=== PATIENT | female | born 1955 | race Caucasian/White ===

== ENCOUNTER 2017-04-10 12:02 | Emergency (ER) | payer OTHER ==
[~2017-04-10] VITALS: Ht 162.6 cm; Wt 68.0 kg
[~2017-04-10 12:02] MED LIST: PERCOCET 325 MG1 TA2 PO
--- NOTE | 2017-04-10 12:38 | ED DYSPNEA/ASTHMA COMPLAINT ---
History of Present Illness General Chief Complaint: Wheezing/Asthma Stated Complaint: ASTHMA Source: patient Exam Limitations: no limitations Vital Signs & Intake/Output Vital Signs & Intake/Output Vital Signs Date Time Temp Pulse Resp B/P B/P Pulse O2 O2 Flow FiO2 Mean Ox Delivery Rate 04/10 1334 96.9 84 18 124/63 100 Room Air 04/10 1252 97 Room Air 04/10 1248 97 04/10 1219 96.8 86 24 137/96 95 Room Air ED Intake and Output 04/11 0000 04/10 1200 Intake Total 0 Output Total Balance 0 Intake, Oral 0 Patient 150 lb Weight Weight Reported by Patient Measurement Method Allergies Coded Allergies: NO KNOWN ALLERGIES (01/31/11) Reconcile Medications Albuterol Sulfate (Proair Hfa) 90 MCG HFA.AER.AD 2 PUF INH Q4-6 PRN PRN DYSPNEA OXYCODONE HCL/ACETAMINOPHEN (Percocet 5-325 MG Tablet) 325 MG/5 MG TAB 1-2 TAB PO Q4-6 PRN PRN PAIN Prednisone 20 MG TABLET 2 TAB PO D ASTHMA Triage Note: C/O SOB X 1 WEEK WITH DRY COUGH. STATE SHE RAN OUT OF HER RESCUE INHALER. Triage Nurses Notes Reviewed? yes Onset: Gradual Duration: day(s): (5) Timing: recent history Severity: mild Associated Symptoms: cough, weakness HPI: 61 year old female presents to the ER with sob, wheezing. She rain out of her inhaler 4 days ago. Her states that her breathing was not good last night. She is a former smoker. She denies chest pain, productive cough, fever or chills. Past History Travel History Traveled to [place] past 21 day No Medical History Any Pertinent Medical History? see below for history Neurological: NONE EENT: NONE Cardiovascular: NONE Respiratory: asthma Gastrointestinal: colitis Hepatic: NONE Renal: NONE Musculoskeletal: NONE Psychiatric: anxiety Endocrine: NONE Blood Disorders: NONE Cancer(s): NONE ADOPTION SOCIAL WORKER/Reproductive: NONE Surgical History Surgical History: non-contributory Psychosocial History What is your primary language Botswanan Tobacco Use: Never used ETOH Use: occasional use Family History Hx Contributory? No Review of Systems Review of Systems Constitutional: Denies: chills, fever. EENTM: Reports: no symptoms. Respiratory: Reports: cough, short of breath. Denies: sputum production. Cardiovascular: Denies: chest pain. GI: Denies: abdominal pain, nausea, vomiting. Genitourinary: Denies: discharge, dysuria, frequency, hematuria. Musculoskeletal: Reports: no symptoms. Skin: Reports: no symptoms. Neurological/Psychological: Reports: no symptoms. Hematologic/Endocrine: Denies: bruising, bleeding, polyuria, polydipsia. Immunologic/Allergic: Denies: splenectomy. All Other Systems: Reviewed and Negative Physical Exam Physical Exam General Appearance: well developed/nourished, alert, awake Head: atraumatic, normal appearance Eyes: Bilateral: normal appearance, PERRL, EOMI. Ears, Nose, Throat: normal pharynx, normal ENT inspection, hearing grossly normal Neck: normal inspection, supple, full range of motion Respiratory: accessory muscle use, wheezing Cardiovascular: regular rate/rhythm Peripheral Pulses: 2+ radial (R), 2+ radial (L) Gastrointestinal: normal bowel sounds, soft, non-tender Extremities: normal inspection, normal capillary refill, normal range of motion, no edema Neurologic/Psych: no motor/sensory deficits, awake, alert, oriented x 3 Skin: intact, normal color, warm/dry Core Measures ACS in differential dx? No Severe Sepsis Present: No Septic Shock Present: No Progress Differential Diagnosis: asthma, bronchitis, COPD, pneumonia Plan of Care: Orders Procedure Date/time Status RT ED ORDERS 04/10 1237 Active NO WHEEZING AFTER DUONEB. PATIENT FEELING MUCH BETTER. (ROCAEL VALENTINE,CESAR) Initial ED EKG: none Departure Departure Time of Disposition: 1325 Disposition: HOME OR SELF CARE Condition: Stable Clinical Impression Primary Impression: Asthma exacerbation Referrals: JARAD TRIANA DO (PCP/Family) Additional Instructions: USE THE INHALER AND PREDNISONE DIRECTED. YOUR PRESCRIPTION IS AT [facility] IN [place]. FOLLOW UP WITH YOUR DOCTOR IN THE OFFICE. RETURN NEEDED. Departure Forms: Customer Survey General Discharge Information Prescriptions: Current Visit Scripts Albuterol Sulfate (Proair Hfa) 2 PUF INH Q4-6 PRN PRN DYSPNEA #1 INHAL Prednisone 2 TAB PO D #6 TAB Critical Care Note Critical Care Note Critical Care Time: non-applicable
[2017-04-10] MEDS ORDERED: PREDNISONE20 M1 PO (13:26)
[2017-04-10] MEDS ORDERED: PROAIR HFA8.5 GM INH (13:26)
[2017-04-10 13:34] VITALS: BP 124/63
== END 2017-04-10 13:35 ==
LOC: ERH 12:02
DX: J45.901 Unspecified asthma with (acute) exacerbation (principal)
CPT/HCPCS: 1263

== ENCOUNTER 2018-04-23 20:19 | Inpatient (IN) | payer OTHER ==
[~2018-04-23] VITALS: Ht 162.6 cm; Wt 45.4 kg
[~2018-04-23 20:19] MED LIST changes: +ADVAIR 100-501 EACH INH; +ALPRAZOLAM1 M2 PO; +APRISO0.375 G1 PO; +MULTIVITAMINS1 EAC9 PO; +PREDNISONE10 M2 PO; +PREDNISONE20 M1 PO; +PROAIR HFA8.5 GM INH
[2018-04-23 21:37] LABS: ABSOLUTE BASOPHIL COUNT 0.2 /CUMM (0.0-0.2); ABSOLUTE EOSINOPHIL COUNT 0.2 /CUMM (0.0-0.7); ABSOLUTE GRANULOCYTE CT 16.9 /CUMM (1.4-6.5); ABSOLUTE LYMPH COUNT 2.8 /CUMM (1.2-3.4); ABSOLUTE MONOCYTE COUNT 1.4 /CUMM (0.10-0.60); BASOPHIL % 0.8 % (0.0-2.0); EOSINOPHIL % 1.1 % (0-5); GRANULOCYTE % 78.3 % (42.2-75.2); HEMATOCRIT 47.1 % (37-47); MEAN CORPUSCULAR HGB 30.8 PG (27.0-31.0); MEAN CORPUSCULAR HGB CONC 34.4 G/DL (33.0-37.0); MEAN CORPUSCULAR VOLUME 89.6 FL (81.0-99.0); MEAN PLATELET VOLUME 8.4 FL (7.4-10.4); PLATELET COUNT 594 /CUMM (130-400); RBC DISTRIBUTION WIDTH 13.2 % (11.5-14.5); RED BLOOD CELL CT 5.26 /CUMM (4.20-5.40)
[2018-04-23 21:44] LABS: PT 13.6 SEC (9.4-12.5); PTT 31 SEC (25-37)
[2018-04-23 21:52] LABS: WHITE BLOOD CELL COUNT 21.6 /CUMM (4.8-10.8)
--- NOTE | 2018-04-23 22:18 | ED GI/GU/ABDOMINAL COMPLAINT ---
See Addendum History of Present Illness General Chief Complaint: General Adult Stated Complaint: PT NAUSEA AND BLEEDING Source: patient Exam Limitations: no limitations Vital Signs & Intake/Output Vital Signs & Intake/Output Vital Signs Date Time Temp Pulse Resp B/P B/P Pulse O2 O2 Flow FiO2 Mean Ox Delivery Rate 04/23 2127 Room Air 04/23 2024 98.5 87 18 116/82 96 Room Air Allergies Coded Allergies: NO KNOWN ALLERGIES (01/31/11) Reconcile Medications Albuterol Sulfate (Proair Hfa) 90 MCG HFA.AER.AD 2 PUF INH Q4-6 PRN PRN DYSPNEA Alprazolam 1 MG TABLET 1 TAB PO TID PRN ANXIETY (Reported) Fluticasone-Salmeterol (Advair 100-50 Diskus) 100 MCG-50 MCG/DOSE BLST.W.DEV 1 PUF INH BID ASTHMA (Reported) Mesalamine (Apriso) 0.375 GRAM CAP.ER.24H 4 CAP PO DAILY UC (Reported) Multiple Vitamin (Multivitamins) 1 EACH TABLET 1 TAB PO DAILY SUPPLEMENT ( Reported) Prednisone 10 MG TABLET 1 TAB PO DAILY colitis 6 tabs po daily x 7 days then 5 tabs po daily x 7 days then 4 tabs po daily x 7 days then 3 tabs po daily x 7 days then 2 tabs po daily x 7 days then follow up with MD Triage Note: PT FROM HOME C/O UC FLARE UP X1 DAY. PT STATES NAUSEA WITH DIARRHEA X MULTIPLE EPISODES. PT STATES BLOODY DIARRHEA SINCE THE FLARE UP. VSS. Triage Nurses Notes Reviewed? yes LMP (ages 10-50): post menopausal, unknown ? N Is pt currently ? No Onset: Gradual Duration: week(s): (2), constant, continues in ED, getting worse Timing: recent history Quality/Severity: cramping Severity Numbers: 8 Location: generalized abdomen Radiation: no radiation Activities at Onset: none Prior Abdominal Problems: similar symptoms (UC) Past Sexual History: Unobtainable at this time No Modifying Factors: none Associated Symptoms: abdominal pain, diarrhea, nausea/vomiting HPI: 62-year-old female history of asthma, ulcerative colitis presents for reevaluation of abdominal pain and bloody diarrhea and nausea and vomiting. Patient was seen in the emergency room 6 days ago similar symptoms. She was given a dose of IV steroids and started on a prednisone taper 60 mg and then down by 10 every week. She's been taking the prednisone as directed but feels like she is not getting any better. She is having multiple episodes of nausea and vomiting and is not tolerating prednisone. She also reports multiple episodes of bloody diarrhea. No chest pain shortness of breath fever or melena no blood thinners. She is followed by Dr. Gordon. She is not taking any biologic's. The only other medication for her UC as mesalamine. (Tobias Rider) Past History Travel History Traveled to [place] past 21 day No Medical History Any Pertinent Medical History? see below for history Neurological: NONE EENT: NONE Cardiovascular: NONE Respiratory: asthma Gastrointestinal: colitis Hepatic: NONE Renal: NONE Musculoskeletal: NONE Psychiatric: anxiety Endocrine: NONE Blood Disorders: NONE Cancer(s): NONE EEG TECH/Reproductive: NONE Surgical History Surgical History: non-contributory Psychosocial History What is your primary language Armenian Tobacco Use: Quit >30 days ago Family History Hx Contributory? No (Tobias Rider) Review of Systems Review of Systems Constitutional: Reports: no symptoms. EENTM: Reports: no symptoms. Respiratory: Reports: no symptoms. Cardiovascular: Reports: no symptoms. GI: Reports: see HPI, abdominal pain, diarrhea, nausea, bloody stool. Genitourinary: Reports: no symptoms. Musculoskeletal: Reports: no symptoms. Skin: Reports: no symptoms. Neurological/Psychological: Reports: no symptoms. Hematologic/Endocrine: Reports: no symptoms. Immunologic/Allergic: Reports: no symptoms. All Other Systems: Reviewed and Negative (Tobias Rider) Physical Exam Physical Exam General Appearance: well developed/nourished, no apparent distress, alert, awake Head: atraumatic, normal appearance Eyes: Bilateral: normal appearance, PERRL, EOMI. Ears, Nose, Throat, Mouth: hearing grossly normal, DRY MUCOUS MEMBRANES Neck: normal inspection, supple, full range of motion Respiratory: normal breath sounds, chest non-tender, no respiratory distress, lungs clear Cardiovascular: regular rate/rhythm, normal peripheral pulses Peripheral Pulses: 2+ radial (R), 2+ radial (L) Gastrointestinal: normal bowel sounds, soft, no organomegaly, tenderness ( DIFFUSE) Back: normal inspection, normal range of motion, no vertebral tenderness Extremities: normal range of motion Neurologic/Psych: no motor/sensory deficits, awake, alert, oriented x 3, normal gait, normal mood/affect Skin: intact, normal color, warm/dry Core Measures ACS in differential dx? No Sepsis Present: No Sepsis Focused Exam Completed? No (Dudley ALONSO,Tobias) Progress Differential Diagnosis: appendicitis, bowel obstruction, colon cancer, diverticulitis, gastritis, hernia, hemorrhoids, ischemic bowel, inflamm bowel dis, kidney stone, perforated viscous, SBO, threatened AB, UTI/pyelo Plan of Care: Orders Procedure Date/time Status Nothing by Mouth 04/24 B Active ED Holding Orders 04/23 2304 Active Admit to inpatient 04/23 2304 Active Vital Signs 04/23 2304 Active Code Status 04/23 2304 Active Patient Data 04/[address] ABD & PELVIS W IV CONTRAST 04/23 2203 Active Add-on Test (ER Only) 04/23 2125 Active URINALYSIS 04/23 2050 Active TROPONIN LEVEL 04/23 2050 Complete PARTIAL THROMBOPLASTIN TIME 04/23 2050 Complete PROTHROMBIN TIME 04/23 2050 Complete LIPASE 04/23 2050 Complete COMPREHENSIVE METABOLIC PANEL 04/23 2050 Complete CBC WITHOUT DIFFERENTIAL 04/23 2050 Complete Current Medications Sig/Kristine Start time Last Medication Dose Stop Time Status Admin Methylprednisolone 40 MG Q12 04/23 2216 UNVr 04/23 (Solumedrol) 225 Laboratory Tests 04/23/182121: Anion Gap 9, Estimated GFR > 60, BUN/Creatinine Ratio 15.6, Glucose 144 H, Calcium 8.4, Total Bilirubin 1.4 H, AST 30, ALT 105 H, Alkaline Phosphatase 191 H, Troponin I < 0.01, Total Protein 5.8 L, Albumin 2.7 L, Globulin 3.1, Albumin/Globulin Ratio 0.9 L, Lipase 155, CBC w Diff NO MAN DIFF REQ, RBC 5.26, MCV 89.6, MCH 30.8, MCHC 34.4, RDW 13.2, MPV 8.4, Gran % 78.3 H, Lymphocytes % 13.1 L, Monocytes % 6.7, Eosinophils % 1.1, Basophils % 0.8, Absolute Granulocytes 16.9 H, Absolute Lymphocytes 2.8, Absolute Monocytes 1.4 H, Absolute Eosinophils 0.2, Absolute Basophils 0.2 04/23/182111: PT 13.6 H, INR 1.24 H, APTT 31 Patient is here for reevaluation of ulcerative colitis. She was seen 6 days ago and started on a prednisone taper but now is feeling worse and is unable to tolerate fluids or the prednisone. She is actively retching on initial evaluation. Her vital signs are stable. Labs repeated and showed a white count of 20,000 that is decreased from 29,000. Her hemoglobin is elevated she is not a smoker she is probably dehydrated. She is not taking any biologic she's failed outpatient treatment with prednisone. Spoke with Dr. Luu who recommends the patient be admitted for IV antibiotics. Patient was started on Solu-Medrol 40 mg twice a day. She is also given Zofran without much improvement and was started on Phenergan. A CT scan of the abdomen and pelvis will be obtained. Patient be admitted to general medicine for further evaluation and treatment she'll require GI consult IV steroids IV fluids serial labs monitoring of vital signs IV antiemetics. Case discussed with Dr. Lombardi he agrees. Initial ED EKG: none (Tobias Rider) Departure Departure Disposition: STILL A PATIENT Condition: Stable Clinical Impression Primary Impression: Ulcerative colitis Qualifiers: Ulcerative colitis location: unspecified ulcerative colitis location Digestive disease complication type: with rectal bleeding Qualified Code: K51.911 - Ulcerative colitis, unspecified with rectal bleeding Referrals: Nikunj Auguste DO (PCP/Family) Departure Forms: Customer Survey General Discharge Information Admission Note Spoke With: Andrey Gamez MD Documentation of Exam: Documentation of any treatments & extenuating circumstances including Concerns Regarding Discharge (functional status, medication knowledge or non-compliance, living conditions, etc.) that warrant an admission rather than observation: [ Patient has failed outpatient treatment with oral steroids. She'll require IV steroids serial labs GI consult colonoscopy IV fluids IV antiemetics] (Tobias Rider) PA/MACHINE BINDING FOLDER Co-Sign Statement Statement: ED Attending supervision documentation- [X] I saw and evaluated the patient. I have also reviewed all the pertinent lab results and diagnostic results. I agree with the findings and the plan of care as documented in the PA's/MACHINE BINDING FOLDER's documentation. [] I have reviewed the ED Record and agree with the PA's/MACHINE BINDING FOLDER's documentation. [] Additions or exceptions (if any) to the PAs/MACHINE BINDING FOLDER's note and plan are summarized below: [] 62-year-old email with ongoing abdominal pain and vomiting. Exacerbation of Crohn's disease. Failing outpatient therapy. (Roscoe PEREZ,Zander Hernández.)
--- NOTE | 2018-04-23 23:13 | History & Physical ---
Adolph Franz 04/23/18 3832: General Information and HPI MD Statement: I have seen and personally examined TIMMY RAMIREZ and documented this H&P. The patient is a 62 year old F who presented with a patient stated chief complaint of [vomiting x2days, crampy abdominal pain x1 month, bloody stools x2 days]. Source of Information: patient, family, old records Exam Limitations: no limitations History of Present Illness: 62-year-old female history of asthma, ulcerative colitis presents for reevaluation of abdominal pain and bloody diarrhea and nausea and vomiting. Patient was seen in the emergency room 6 days ago similar symptoms. She was given a dose of IV steroids and started on a prednisone taper 60 mg and then down by 10 every week. She's been taking the prednisone as directed but feels like she is not getting any better. She is having multiple episodes of nausea and vomiting and is not tolerating prednisone. She also reports multiple episodes of bloody diarrhea. No chest pain shortness of breath fever or melena no blood thinners. She is followed by Dr. Gordon. She is not taking any biologic's. The only other medication for her UC is mesalamine. Patient states that stress normally exacerbates her Ulcerative Colitis. States that mother recently and will was not executed so there has been lots of fighting in the family. States that her last flare was in 2012. States that her symptoms started approximately 1 month ago, and she saw Dr. Gordon outpatient three weeks ago who prescribed a steroid taper and gave her samples of Aprizo which she took. States she got better for roughly a week and then continued with crampy abdominal pain which eventually made her go to the ED on 04/17, where CT A/ P showed colitis, and she was given IV steroids and started on PO prednisone taper. She states that she again began having cramping Wednesday, as well as nausea and decreased PO appetite 2/2 the nausea. Started having bloody "pink" stools with blood on toilet paper although none in the bowl on . Began vomiting clear liquids Wednesday, and symptoms worsened prompting her to come into ED Wednesday. Past History Travel History Traveled to [place] past 21 day No Medical History Neurological: NONE EENT: NONE Cardiovascular: NONE Respiratory: asthma Gastrointestinal: colitis Hepatic: NONE Renal: NONE Musculoskeletal: NONE Psychiatric: anxiety Endocrine: NONE Blood Disorders: NONE Cancer(s): NONE REGISTRAR COLLEGE OR UNIVERSITY/Reproductive: NONE Surgical History Surgical History: non-contributory Past Family/Social History Psychosocial History Smoking Status: Former Smoker (quit at 24years of age) ETOH Use: occasional use (wine) Illicit Drug Use: denies illicit drug use Functional Ability ADLs Independent: dressing, eating, toileting, bathing. Ambulation: independent IADLs Independent: shopping, housework, finances, food prep, telephone, transportation , medication admin. Sexual History Past Sexual History Unobtainable at this time Review of Systems Review of Systems Constitutional: Reports: see HPI, malaise. Denies: chills, diaphoresis, fever, weakness. Cardiovascular: Denies: chest pain, edema, orthopena, palpitations. Respiratory: Denies: cough, hemoptysis. GI: Reports: abdominal pain, bloating, diarrhea, bloody stool, changes in stool. Exam & Diagnostic Data Last 24 Hrs of Vital Signs/I&O Vital Signs Date Time Temp Pulse Resp B/P B/P Pulse O2 O2 Flow FiO2 Mean Ox Delivery Rate 04/24 0054 97.7 76 18 100/64 95 Room Air 04/23 2312 98.2 100 18 137/76 94 Room Air 04/23 2127 Room Air 04/23 2024 98.5 87 18 116/82 96 Room Air Intake & Output 04/24 0800 04/24 0000 04/23 1600 Intake Total 1000 Output Total Balance 1000 Intake, IV 1000 Patient 150 lb Weight Weight Reported by Patient Measurement Method Physical Exam General Appearance Alert, Oriented X3, Cooperative, Mild Distress Skin No Rashes Skin Temp/Moisture Exam: Warm/Dry Cardiovascular Regular Rate, Normal S1, Normal S2 Lungs Clear to Auscultation, Normal Air Movement Abdomen Soft, No Tenderness, localizes crampy abdominal tenderness in band-like distribution around umbilicus Neurological Normal Speech, Strength at 5/5 X4 Ext Extremities No Edema, Normal Pulses Last 24 Hrs of Labs/Artem: Laboratory Tests 04/23/18 2307: Urine Color YEL, Urine Clarity CLEAR, Urine pH 6.5, Ur Specific [place] <= 1.005 , Urine Protein NEG, Urine Ketones NEG, Urine Nitrite NEG, Urine Bilirubin NEG, Urine Urobilinogen 0.2, Ur Leukocyte Esterase SMALL H, Ur Microscopic SEDIMENT EXAMINED, Urine RBC 1-3, Urine WBC 3-5 H, Ur Epithelial Cells FEW, Urine Bacteria RARE H, Urine Hemoglobin NEG, Urine Glucose NEG 04/23/182121: Anion Gap 9, Estimated GFR > 60, BUN/Creatinine Ratio 15.6, Glucose 144 H, Calcium 8.4, Total Bilirubin 1.4 H, AST 30, ALT 105 H, Alkaline Phosphatase 191 H, Troponin I < 0.01, Total Protein 5.8 L, Albumin 2.7 L, Globulin 3.1, Albumin/Globulin Ratio 0.9 L, Lipase 155, CBC w Diff NO MAN DIFF REQ, RBC 5.26, MCV 89.6, MCH 30.8, MCHC 34.4, RDW 13.2, MPV 8.4, Gran % 78.3 H, Lymphocytes % 13.1 L, Monocytes % 6.7, Eosinophils % 1.1, Basophils % 0.8, Absolute Granulocytes 16.9 H, Absolute Lymphocytes 2.8, Absolute Monocytes 1.4 H, Absolute Eosinophils 0.2, Absolute Basophils 0.2 04/23/182111: PT 13.6 H, INR 1.24 H, APTT 31 Microbiology 04/24 6 STOOL: Ova and Parasite Macroscopic Exam - ORD 04/24 6 STOOL: Clostridium difficile Toxin A & B - ORD 04/24 6 STOOL: Yersinia Culture - ORD 04/24 6 STOOL: Stool Culture - ORD Assessment/Plan Assessment: 62-year-old female history of asthma, ulcerative colitis presents for reevaluation of abdominal pain and bloody diarrhea and nausea and vomiting. She was last seen in ED on April 17, and did not completer her outpatient steroid taper 2/2 nausea and vomiting. She does have leukocytosis on labs, however this is in the setting of steroid use and has been afebrile. She will be admitted for an acute flare of ulcerative colitis. Differentials include Ulcerative Colitis, doubt infectious colitis, gastroenteritis, gastritis. Likely an acute flare as patients past flares have presented similarly in the setting of an acute stressor; likely not infectious as no sick contacts nor fevers; while she does have diarrhea it is bloody leading more likely towards UC. Problem List #Acute Flare of Ulcerative Colitis #Intractable Nausea #Hyponatremia likely 2/2 diarrhea #Bloody stools #Elevated ALT #Ulcerative Colitis Flare -NPO overnight in case of intervention in AM -Recieved Solumedrol in ED, will continue with 40mg IV q12 -Gastro consult in AM; Pt follows Dr Gordon outpatient; will follow recs -IVF -Phenergen and Tigan as needed to control nausea -Stool cultures were sent #Nausea -As above -IVF #Bloody Stools -Hemoglobin stable -Will follow up CBC in AM #ALT elevation -CT A/P on 04/17 shows biliary sludge DVT PPx: ALPS only, no heparin 2/2 bloody stool IV access NPO DNR/DNI Dispo: Likely home As Ranked By This Provider Problem List: 1. Ulcerative colitis Qualifiers Ulcerative colitis location: unspecified ulcerative colitis location Digestive disease complication type: with rectal bleeding Qualified Code: K51.911 - Ulcerative colitis, unspecified with rectal bleeding Core Measures/Misc (05/30) Acute Coronary Syndrome ACS Diagnosis: No Congestive Heart Failure Congestive Heart Failure Diagnosis No Cerebrovascular Accident CVA/TIA Diagnosis: No VTE (View Protocol) VTE Risk Factors Age>40 No Mechanical VTE Prophylaxis d/t N/A MechProphylax Ordered No VTE Pharm Prophylaxis d/t Medical Contraindication (bloody stools) Sepsis (View protocol) Sepsis Present: No If YES complete Sepsis Event Note If YES complete Sepsis Event Note ManavPippa Sheldon 04/23/18 2321: Core Measures/Misc (05/30) Sepsis (View protocol) If YES complete Sepsis Event Note If YES complete Sepsis Event Note Resident Review Statement Resident Statement: examined this patient, discussed with agriculture internship, agreed with agriculture internship, discussed with family, reviewed EMR data (avail), discussed with nursing , discussed with case mgmt, reviewed images, amended to note Other Findings: Ms. Ramirez is 62yo F w/ PMH of long standing UC w/ intermittent flares in the past without hospitalization, asthma, anxiety, presented to ER CC of UC leander up x 1 day w/ Nausea, limited bilious vomiting, multiple episodes of bloody diarrhea. Patient was seen by Dr. Gordon last in 2012 for colonoscopy. She presented to ER 6 days ago before this admission and was discharged on Asocol and prednisone taper after ER consulted GI on-call. She felt improved intermittently howevef again on Thusrday night she started to have N/V/D again which she could not take her meds down PO. Patient was previously given some samples from GI for UC, improved, however her insurance could not support the meds. Rest of HPI per agriculture internship's note. During our clinical interaction, patient denied recent travel/sick contacts, fever/lightheadedness/diaphoresis/night sweat/weight change/cough/SOB/Chest Pain /Palpitation/CVA tenderness/urinary abnormality, or other skin/musculoskeletal/ neurological/mood disorders, or dietary/appetite change. -Smoking: denied -Alcohol: denied -Drugs: denied -Outpt physicians: GI, PCP On admission, Vitals: stable afebrile, BP 116/82, 96 RA Physical exam as above. Pertinent findings include some mild crampy tenderness on lower left Ab/[place]-umbilicous area. Otherwise unremarkable. -CBC: Leukocytosis 21.5, H/H 16.2/47.1, PLT 594 -CMP: Na 134, otherwise WNL, ALT 105, ALkP 191, Trop -ve x 1, albumin 2.7, -PT/INR/DDimer: 13.6/1.24 -CT Abd: Similar appearance of active ulcerative colitis with pancolonic inflammation and wall thickening. No evidence of perforation. No fluid collection. Cholelithiasis. -Last Echo: None in our system -Interventions in ER: Solumedrol 40 q12, Phenergen, NS Bolus x 1, ZOfran IV x 1 Problem list/Assessment/Hospital Course: #Ulcerative colitis vs infection/ischemic pending rule out #Leukocytosis 2/2 UC/Colitis #Dehydration w/ hemeconcentration #Elevated ALT/ALP, likely reactive to slurge (see CT Ab report) #PMH of UC, asthma, anxiety - Admit to general medicine - Vitals per protocol, monitor I&O per protocol. - COntinuous hydration w/ NS 125cc/hr - Keep off ABX for now as patient's clinical status more likely represent UC colitis without any fever, though leukocytosis could also be from infective colitis. - Continue all home meds, except HOLDING Mesalamine/prednisone (on methylsolumedrol now) pending GI recommendations. - Pending GI Consult in the AM - Pending cultures including stool cultures/OVA, etc. - Pain per pathway DVT prophylaxis ALPS only w/ bloody diarrhea NPO IV Access: Peripheral IV DNR/DNI Dispo: likely [facility] Andrey Gamez MD 04/24/18 9443: General Information and HPI MD Statement: I have seen and personally examined TIMMY RAMIREZ and documented this H&P. The patient is a 62 year old F who presented with a patient stated chief complaint of [nausea, vomiting and bloody diarrhea]. Source of Information: patient Allergies/Medications Allergies: Coded Allergies: NO KNOWN ALLERGIES (01/31/11) Home Med list Albuterol Sulfate (Proair Hfa) 90 MCG HFA.AER.AD 2 PUF INH Q4-6 PRN PRN DYSPNEA Alprazolam 1 MG TABLET 1 TAB PO TID PRN ANXIETY (Reported) Fluticasone-Salmeterol (Advair 100-50 Diskus) 100 MCG-50 MCG/DOSE BLST.W.DEV 1 PUF INH BID ASTHMA (Reported) Mesalamine (Apriso) 0.375 GRAM CAP.ER.24H 4 CAP PO DAILY UC (Reported) Multiple Vitamin (Multivitamins) 1 EACH TABLET 1 TAB PO DAILY SUPPLEMENT ( Reported) Prednisone 10 MG TABLET 1 TAB PO DAILY colitis 6 tabs po daily x 7 days then 5 tabs po daily x 7 days then 4 tabs po daily x 7 days then 3 tabs po daily x 7 days then 2 tabs po daily x 7 days then follow up with MD Past History Medical History Respiratory: asthma Gastrointestinal: ulcerative colitis Psychiatric: anxiety Review of Systems Review of Systems Constitutional: Reports: see HPI. Exam & Diagnostic Data Last 24 Hrs of Vital Signs/I&O Vital Signs Date Time Temp Pulse Resp B/P B/P Pulse O2 O2 Flow FiO2 Mean Ox Delivery Rate 04/24 0300 99.8 91 18 100/64 94 Room Air 04/24 0054 97.7 76 18 100/64 95 Room Air 04/23 2312 98.2 100 18 137/76 94 Room Air 04/23 2127 Room Air 04/23 2024 98.5 87 18 116/82 96 Room Air Intake & Output 04/24 0800 04/24 0000 04/23 1600 Intake Total 1000 Output Total Balance 1000 Intake, IV 1000 Patient 147 lb 150 lb Weight Weight Bed scale Reported by Patient Measurement Method Physical Exam General Appearance Alert, Oriented X3, Cooperative, No Acute Distress Skin No Rashes, No Breakdown, No Significant Lesion Skin Temp/Moisture Exam: Warm/Dry Sepsis Skin Exam (color): Normal for Ethnicity HEENT Atraumatic, PERRLA, EOMI Neck Supple, No JVD Lymphatic Axillary nl, Cervical nl Cardiovascular Regular Rate, Normal S1, Normal S2 Lungs Clear to Auscultation, Normal Air Movement Abdomen Normal Bowel Sounds, Soft, localizes crampy abdominal tenderness in band -like distribution around umbilicus Neurological Normal Speech Extremities No Edema, Normal Pulses Sepsis Peripheral Pulse Location: Dorsalis Pedis Sepsis Peripheral Pulse Exam: Normal Sepsis Cap Refill Exam: <2 Sec Last 24 Hrs of Labs/Artem: Laboratory Tests 04/23/182306: Urine Color YEL, Urine Clarity CLEAR, Urine pH 6.5, Ur Specific [place] <= 1.005 , Urine Protein NEG, Urine Ketones NEG, Urine Nitrite NEG, Urine Bilirubin NEG, Urine Urobilinogen 0.2, Ur Leukocyte Esterase SMALL H, Ur Microscopic SEDIMENT EXAMINED, Urine RBC 1-3, Urine WBC 3-5 H, Ur Epithelial Cells FEW, Urine Bacteria RARE H, Urine Hemoglobin NEG, Urine Glucose NEG 04/23/182121: Anion Gap 9, Estimated GFR > 60, BUN/Creatinine Ratio 15.6, Glucose 144 H, Calcium 8.4, Total Bilirubin 1.4 H, AST 30, ALT 105 H, Alkaline Phosphatase 191 H, Troponin I < 0.01, Total Protein 5.8 L, Albumin 2.7 L, Globulin 3.1, Albumin/Globulin Ratio 0.9 L, Lipase 155, CBC w Diff NO MAN DIFF REQ, RBC 5.26, MCV 89.6, MCH 30.8, MCHC 34.4, RDW 13.2, MPV 8.4, Gran % 78.3 H, Lymphocytes % 13.1 L, Monocytes % 6.7, Eosinophils % 1.1, Basophils % 0.8, Absolute Granulocytes 16.9 H, Absolute Lymphocytes 2.8, Absolute Monocytes 1.4 H, Absolute Eosinophils 0.2, Absolute Basophils 0.2 04/23/182111: PT 13.6 H, INR 1.24 H, APTT 31 Microbiology 04/24 6 STOOL: Ova and Parasite Macroscopic Exam - ORD 04/24 6 STOOL: Clostridium difficile Toxin A & B - ORD 04/24 6 STOOL: Yersinia Culture - ORD 04/24 6 STOOL: Stool Culture - ORD Core Measures/Misc (05/30) Sepsis (View protocol) If YES complete Sepsis Event Note If YES complete Sepsis Event Note Attending MD Review Statement Attending Statement Attending MD Statement: examined this patient, discuss w/resident/PA/BUSINESS APPLICATIONS MANAGER, agreed w/resident/PA/BUSINESS APPLICATIONS MANAGER, discussed with family, reviewed EMR data (avail), amended to note Attending Assessment/Plan: This patient is a 62-year-old female with a significant past medical history for asthma and ulcerative colitis who presents for reevaluation of abdominal pain, bloody diarrhea, nausea and vomiting. She was seen in the emergency room 6 days ago with similar complaints, given a dose of IV steroids and started on a prednisone taper 60 mg and then down by 10mg every week. She's been taking the prednisone as directed but continues to have multiple episodes of nausea and vomiting now associated with the bloody diarrhea. She is followed by Dr. Gordon and her baseline therapy is mesalamine. Upon evaluation in the emergency department the patients vital signs were stable, leukocytosis 21.6 (on prednisone), INR 1.24, ALT 105, alkaline phosphatase [address] ABD/PELV - Similar appearance of active ulcerative colitis with pancolonic inflammation and wall thickening. No evidence of perforation. No fluid collection. The patient is admitted to [facility] for failed outpatient treatment of inflammatory bowel diseases (UC). Gentle hydration, rule out infectious diarrhea, IV steroids and GI consult. DNR/DNI
--- NOTE | 2018-04-23 23:21 | CT SCAN REPORT ---
EXAMINATION: CT ABDOMEN AND PELVIS WITH CONTRAST CLINICAL INFORMATION: Diffuse pain, vomiting. Bloody diarrhea. History of ulcerative colitis. COMPARISON: 04/17/2018 TECHNIQUE: Multidetector volumetric imaging was performed of the abdomen and pelvis following IV administration of 95 mL of Optiray 320 intravenous contrast. Sagittal and coronal reformatted images were obtained on the technologist's workstation. DLP: 302 mGy-cm FINDINGS: LUNG BASES: The visualized lung bases are unremarkable. LIVER, GALLBLADDER, AND BILIARY TREE: The liver is normal in size, shape, and attenuation. No focal hepatic lesion or biliary ductal dilatation is present. The gallbladder is somewhat distended. Small stones/sludge are seen layering in the gallbladder fundus. No gallbladder wall thickening or pericholecystic fluid. PANCREAS: Unremarkable. SPLEEN: Unremarkable. ADRENAL GLANDS: Unremarkable. KIDNEYS AND URETERS: The kidneys are normal in size, shape, and attenuation. No hydronephrosis, hydroureter, or calculi seen. No perinephric stranding. BLADDER: Unremarkable. GASTROINTESTINAL TRACT: Stomach is unremarkable. The small bowel is normal in caliber. There is no obstruction. There is pancolonic wall thickening with adjacent inflammation. This has a similar appearance to the prior CT. Chronic intramural fatty infiltration is also noted. No free air. No fluid collection. ABDOMINAL WALL: No significant hernia is appreciated. LYMPH NODES: Normal. VASCULAR: Unremarkable. PELVIC VISCERA: The uterus and adnexa are unremarkable. OSSEOUS STRUCTURES: No acute or suspicious osseous abnormality. Mild degenerative changes in the spine. IMPRESSION: Similar appearance of active ulcerative colitis with pancolonic inflammation and wall thickening. No evidence of perforation. No fluid collection. Cholelithiasis.
[2018-04-24 03:00] VITALS: BP 100/64
[2018-04-24 06:24] VITALS: BP 102/62
[2018-04-24 08:26] LABS: ABSOLUTE BASOPHIL COUNT 0 /CUMM (0.0-0.2); ABSOLUTE EOSINOPHIL COUNT 0 /CUMM (0.0-0.7); ABSOLUTE GRANULOCYTE CT 18.1 /CUMM (1.4-6.5); ABSOLUTE LYMPH COUNT 1.2 /CUMM (1.2-3.4); ABSOLUTE MONOCYTE COUNT 0.1 /CUMM (0.10-0.60); BASOPHIL % 0.1 % (0.0-2.0); EOSINOPHIL % 0.1 % (0-5); GRANULOCYTE % 93.3 % (42.2-75.2); MEAN CORPUSCULAR HGB 30.8 PG (27.0-31.0); MEAN CORPUSCULAR HGB CONC 33.8 G/DL (33.0-37.0); MEAN CORPUSCULAR VOLUME 91.1 FL (81.0-99.0); MEAN PLATELET VOLUME 8.1 FL (7.4-10.4); PLATELET COUNT 491 /CUMM (130-400); RBC DISTRIBUTION WIDTH 13.7 % (11.5-14.5); RED BLOOD CELL CT 4.55 /CUMM (4.20-5.40)
--- NOTE | 2018-04-24 08:58 | PN- Housestaff ---
Cristal Ramos 04/24/18 0858: Subjective Follow-up For: Ulcerative colitis flare up Subjective: Patient was seen and examined at bedside. She reports she had bloody diarrhea in the morning. She denies fever, chills, nausea, vomiting, chest pain, shortness of breath. Review of Systems Constitutional: Reports: see HPI. Objective Last 24 Hrs of Vital Signs/I&O Vital Signs Date Time Temp Pulse Resp B/P B/P Pulse O2 O2 Flow FiO2 Mean Ox Delivery Rate 04/24 1457 98.3 68 18 121/79 96 04/24 0800 97 Room Air 04/24 0624 98.3 69 20 102/62 93 / 0300 99.8 91 18 100/64 94 Room Air 04/24 0054 97.7 76 18 100/64 95 Room Air 04/23 2312 98.2 100 18 137/76 94 Room Air 04/23 2127 Room Air 04/23 2024 98.5 87 18 116/82 96 Room Air Intake & Output 04/24 1600 04/24 0800 04/24 0000 Intake Total 949 135 8646 Output Total 3 300 Balance 794 022 6629 Intake, IV 600 1000 Intake, Oral 120 Output, Stool 3 Output, Urine 300 Patient 100 lb 150 lb Weight Weight Bed scale Reported by Patient Measurement Method Physical Exam General Appearance: Alert, Oriented X3, Cooperative, No Acute Distress Neck: Supple Cardiovascular: Regular Rate, Normal S1, Normal S2 Lungs: Clear to Auscultation Abdomen: Normal Bowel Sounds, Soft, No Tenderness Assessment/Plan Assessment: 62-year-old female history of asthma, ulcerative colitis presents for reevaluation of abdominal pain and bloody diarrhea and nausea and vomiting. She was last seen in ED on April 17, and did not completer her outpatient steroid taper 2/2 nausea and vomiting. She does have leukocytosis on labs, however this is in the setting of steroid use and has been afebrile. She will be admitted for an acute flare of ulcerative colitis. Differentials include Ulcerative Colitis, doubt infectious colitis, gastroenteritis, gastritis. Likely an acute flare as patients past flares have presented similarly in the setting of an acute stressor; likely not infectious as no sick contacts nor fevers; while she does have diarrhea it is bloody leading more likely towards UC. Problem List 1.Acute Flare of Ulcerative Colitis 2.Intractable Nausea 3.Hyponatremia likely 2/2 diarrhea 4.Bloody stools 5.Elevated ALT 1.Ulcerative Colitis Flare -Recieved Solumedrol in ED, will continue with 40mg IV q12 -Gastro consult appreciated. Pt follows Dr Gordon outpatient; will follow recs -IVF -Phenergen and Tigan as needed to control nausea -Stool cultures were sent. Will f/u on reports 2.Nausea -As above -IVF 3.Bloody Stools -Hemoglobin stable -Will follow up CBC in AM 4.ALT elevation -CT A/P on 04/17 shows biliary sludge DVT PPx: ALPS only, no heparin 2/2 bloody stool IV access NPO DNR/DNI Dispo: Likely home Problem List: 1. Ulcerative colitis 2. Asthma exacerbation Pain Ratin Pain Location: na Pain Goal: Remain pain free Pain Plan: na Tomorrow's Labs & Rationales: cbc and bep Sylvester VALENTINE,Amir 04/24/18 1413: Attending MD Review Statement Attending Statement Attending MD Statement: examined this patient, discuss w/resident/PA/GLAZING SUPERINTENDENT, agreed w/resident/PA/GLAZING SUPERINTENDENT, reviewed EMR data (avail), discussed with nursing Attending Assessment/Plan: Pt was seen and evaluated. Chart reviewed. Being tx for active IBD --f/u GI recommendations --cont to monitor --rest of the plan as per resident's note
[2018-04-24 10:30] LABS: HEMATOCRIT 41.5 % (37-47)
[2018-04-24 10:31] LABS: WHITE BLOOD CELL COUNT 19.4 /CUMM (4.8-10.8)
[2018-04-24 14:57] VITALS: BP 121/79
--- NOTE | 2018-04-24 15:00 | Cons- Gastroenterology ---
See Addendum General Information and HPI Consulting Request Date of Consult: 04/24/18 Requested By: Andrey Gamez MD Reason for Consult: I was callled by the hospitalist service to assess ulcerative colitis, in coverage for Dr. Gordon. Source of Information: patient, family (pt's sister, Romy), old records Exam Limitations: mild anxiety History of Present Illness: 62 y/o female, remote hx 11/22/06: collagenous colitis via bxs, *later progressing to ulcerative colitis on repeat bxs (10/18/09 & 05/06/10), followed by Dr. Gordon for GI. (*The patient later stated her colitis was diagnosed at age 26, in 1981). The patient is a remote 6-pack-year cigarette smoker, stopping 1978. She also has a hx of EtOH abuse (wine- which she downplayed), anxiety, depression, DJD, & asthma. +FHx colon Ca (M- Britta Walter- late onset 84 in the setting of UC, 89). +FHx IBD (M- UC). She denied any additional FHx GI Ca, GI disease, or inherited liver disease. 07/18/13: Colonoscopy to cecum for UC surveillance, per Dr. Gordon-mildly active colitis from the rectum to the cecum, with erythema, friability, and a few superficial erosions. No raised lesions were seen. Small internal and external hemorrhoids. Numerous random 4 quadrant biopsies were obtained for surveillance purposes, revealing mild to severe chronic colitis with mild acute activity, in a continuous fashion, from the rectum to the cecum, more so proximally > distally, without dysplasia or Ca. She was most recently seen in the office by Dr. Gordon 04/14/18, previously seen by him 12/19/15. She previously was not compliant with office follow-up, nor with colonoscopy for continued CRC surveillance. She was found to have abnormal LFTs in 2015 and an ultrasound was advised then, but the patient was not compliant with this. She was drinking alcohol at that time. She was supposed to have been on Lialda, but it was too expensive, and she stopped it on her own in 02/2018, followed by worsening of her symptoms. She previously had achieved clinical remission on Mesalamine, but stopped it. When she saw Dr. Gordon , she was having 7 loose bowel movements a day, without any noticeable blood. She tried Imodium, with only partial relief. She had mild abdominal cramping, unrelated to eating. Her appetite was poor. She also noted intermittent heartburn and bilious vomiting, without any dysphagia or hematemesis. She denied any jaundice, abdominal swelling, or peripheral edema. When last seen by Dr. Gordon on 04/14/18, he restarted her mesalamine. He gave her a discount card for Apriso 1.5 g daily. As it had been 5 years from her last colonoscopy, he advised a repeat colonoscopy for surveillance purposes, which was tentatively scheduled for 05/24/18. He also advised checking her LFTs (possibly from a combination of ANGULO & EtOH, although her ratios were not typical for pure EtOH hepatitis). He also ordered an ultrasound. *Her LFTs have dated back several years, with + GGT. He felt that her reflux could be treated with Tums or H2 blockers, with the caveat that if it worsened, to rx PPI, with a low threshold to do an EGD. 05/01/09: Hep A Ab, Hep Bs Ag, Hep B core Ag, & Hep C Ab- all neg. 10/09/09: nl IgA 223, tTG Ab & DGP Ab- negative. 03/12/10: AMA < 0.1, anti-smooth muscle Ab- neg, ELVIN- neg. 01/31/11: EtOH < 10 04/13/18: *fecal calprotectin 1109.7 04/13/18: C. difficile toxin A&B- negative. 04/14/18: Dr. Gordon- glu 184, BUN/Cr 11/0.9, GFR > 60, Na 135, K 3.4, HCO3 20, AG 17, Ca 9.1, alb 3.7, glob 3.4, TBil 1.3, alk phos 141, AST 24, ALT 27, Fe 25, TIBC 264 (*c/w chronic disease), ferritin 248, B12 739, folate 17.4, Vit D 22.5, WBC 24.6 (63S/10B/18L/8M/1E), H/H 16.7/49.2, MCV 90.8, RDW 12.4, PLT 429 The patient went to the [facility] 04/17/18, arriving at 12:01 p.m., complaining of a flare of her ulcerative colitis, with bloody diarrhea. At that time, she was hemodynamically stable (BP 125/86), except for being borderline tachycardic (P 103), and afebrile, with O2 sat RA 98%. Her pulse normalized with IV fluids. Her temp peaked at 99.5. She was given IV NS, KCl, & IV Solucortef 100 mg. She had leukocytosis and appeared to be hemoconcentrated 04/17/18: WBC 29.9 (67S/5B/17L/11M; *reportedly not on steroids then), H/H 16.9/ 50.1, MCV 90.3, RDW 12.4, PLT 497, glu 148, BUN/Cr 11/0.9, GFR > 60, Na 133, K 3.3, HCO3 30, AG 12, lactate 1.7, lipase 93, Mg 2.3, Ca 8.7, alb 3.4, glob 3.4, TBil 1.3, alk phos 246, AST 45, ALT 55, *CRP > 9.0 (no ESR). 04/17/18: EKG- NSR @ 92, nl axis, nl int, NSST. 04/17/18: CT ABD & PELVIS W IV CONTRAST- 1. Findings are consistent with active ulcerative colitis. No bowel perforation, megacolon, or abscess. Elongated ascending colon, with cecum in left mid- abdomen. Patent celiac, SMA, MALENA. Normal aorta. 2. Cholelithiasis without cholecystitis, CBD 4 mm, normal liver, normal spleen & pancreas. 3. Mild DJD T-L spine. No sacroiliitis. *Apparently, the [facility] spoke with Dr. Evan galdamez, and the patient was sent home on Prednisone 60 mg daily, with plans for a follow-up OV on 04/28/18. The patient returned to the [facility] 04/23/18, arriving 8:19 p.m., with persistent flare symptoms of her ulcerative colitis, complaining of nausea without vomiting, & multiple episodes of bloody diarrhea, despite Prednisone 60 mg daily & Apriso 1.5g daily). Upon arrival, 116/82, P 87, R 18, T 98.5, O2 sat RA 96%. 04/23/18: 2121- Admission labs- WBC 21.6 (78% gran/17 gran Ab), H/H 16.2/47.1, MCV 89.6, RDW 13.2, PLT 594, PT 13.6, INR 1.24, PTT 31, glu 144, BUN/Cr 14/0.9, GFR > 60, Na 134, K 3.5, HCO3 28, AG 9, lipase 155, Ca 8.4, alb 2.7, glob 3.1, TBil 1.4, alk phos 191, AST 30, ALT 105, troponin < 0.01; U/A- clear yellow, < 1.005, 6.5, 1-3 RBC, 3-5 WBC, micro- otherwise neg, neg nitrite, small esterase. 04/23/18: CT ABD & PELVIS W IV CONTRAST- Similar appearance of active ulcerative colitis with pancolonic inflammation and wall thickening. No evidence of perforation. No fluid collection. Cholelithiasis. No dilated ducts or cholecystitis. Normal liver. She was given IV NS, Zofran, Phenergan, & SoluMedrol 40 mg IV Q12h. the ER contacted me, and I advised that the patient be admitted for IV therapy. She had never been on 6MP or biologic agents. *Again, compliance had been an issue in the past (along with EtOH, anxiety, etc). 04/24/18: C. difficile toxin A&B- negative. 04/24/18: 0637- WBC 19.4 (93% gran/18 gran Ab), H/H 14/41.5, MCV 91.1, RDW 13.7, PLT 491, BUN/Cr 11/0.6, GFR > 60, Na 137, K 3.3, HCO3 25, AG 8. The patient denied any recent outpatient antibiotics or NSAID use. She claimed her diarrhea was improving after being started on IV steroids. As of 04/24/18, the patient remained hemodynamically stable, with Tm 99.8 ( currently 98.3), with O2 sat RA 96%. The patient stated she had minimal diarrhea with only scant rectal bleeding. Her reflux was minimal. She denied any odynophagia, dysphagia, early satiety, hematemesis, or melena. Her nausea was fair, without any vomiting. She denied any jaundice, dark urine, light stools, or pruritus. She had known gallstones, but had no RUQ symptoms. She claimed she lost 12 pounds over the past couple of months. Her appetite was fair. She denied any rashes, fevers, chills, night sweats, CP, or SOB. She had chronic arthralgias in her right hand after sustaining trauma there, but otherwise denied any additional arthralgias. She denied any constipation, obstipation, tenesmus, or change in stool caliber. She denied any prior surgery. She denied any raw food or recent travel. Allergies/Medications Allergies: Coded Allergies: NO KNOWN ALLERGIES (01/31/11) Home Med List: Albuterol Sulfate (Proair Hfa) 90 MCG HFA.AER.AD 2 PUF INH Q4-6 PRN PRN DYSPNEA Alprazolam 1 MG TABLET 1 TAB PO TID PRN ANXIETY (Reported) Fluticasone-Salmeterol (Advair 100-50 Diskus) 100 MCG-50 MCG/DOSE BLST.W.DEV 1 PUF INH BID ASTHMA (Reported) Mesalamine (Apriso) 0.375 GRAM CAP.ER.24H 4 CAP PO DAILY UC (Reported) Multiple Vitamin (Multivitamins) 1 EACH TABLET 1 TAB PO DAILY SUPPLEMENT ( Reported) Prednisone 10 MG TABLET 1 TAB PO DAILY colitis 6 tabs po daily x 7 days then 5 tabs po daily x 7 days then 4 tabs po daily x 7 days then 3 tabs po daily x 7 days then 2 tabs po daily x 7 days then follow up with MD Current Medications: Current Medications Sig/Kristine Start time Last Medication Dose Route Stop Time Status Admin Acetaminophen 650 MG Q6P PRN 04/23 2345 AC PO Alprazolam 1 MG TIDPRN PRN 04/24 0015 DC PO 05/01 0014 Budesonide/ 1 PUF BID 04/24 0900 AC Formoterol Fumarate INH Melatonin 10 MG ONCE ONE 04/240 DC 04/24 PO 04/24 201 0352 Methylprednisolone 40 MG Q12 04/23 2216 AC 04/24 IV 08 Ondansetron HCl 0 .STK-MED ONE 04/23 2132 DC .ROUTE Ondansetron HCl 4 MG ONCE ONE 04/23 2130 DC 04/23 IV 04/23 Promethazine HCl 25 MG Q6P PRN 04/24 0030 AC IV 05/01 0029 Promethazine HCl 25 MG ONCE ONE 04/23 2215 DC 04/23 IV 04/23 Promethazine HCl 0 .STK-MED ONE 04/23 2209 DC .ROUTE Sodium Chloride 1,000 ML .Q6H40M 04/24 1400 AC 04/24 IV 04/25 0319 1421 Sodium Chloride 1,000 ML .Q6H40M 04/24 0000 DC 04/24 IV 04/24 1319 0611 Sodium Chloride 1,000 ML BOLUS ONE 04/23 2130 DC 04/23 IV 04/23 Past History Travel History Traveled to [place] past 21 day No Medical History Blood Transfusion Hx: No Neurological: NONE EENT: ALLERGIES (SEASONAL) Cardiovascular: NONE Respiratory: asthma Gastrointestinal: ulcerative colitis Hepatic: cholelithiasis (known), chronic int abnl LFTs Renal: NONE Musculoskeletal: ARTHRITIS TO R HAND Psychiatric: anxiety, depression Endocrine: vitamin D deficiency Blood Disorders: NONE Cancer(s): NONE MEDICAL ATTENDANT/Reproductive: NONE Surgical History Surgical History: none Family History Relations & Conditions If Any: MOTHER (late onset colon Ca at 84, in the setting of UC (Britta Walter).). , Age 92; Cause: Colon cancer. FATHER, , Age 56; Cause: Myocardial infarct. Psychosocial History Where Do You Live? Home Who Do You Live With? spouse Services at Home: None Primary Language: Beninese Smoking Status: Former Smoker (quit at 24years of age) ETOH Use: occasional use (wine- int heavy in past) Illicit Drug Use: denies illicit drug use Living Will? no Power of Field Test Engineer/HCP? no Other Social History: to He. 2 dtrs, 1 son, & 1 stepdtr- all [employer]. Hx intermittent abuse of wine (pt vague- claims she stopped). Ex-6 pk yr cigarette smoker, D/C 1978. No illicit drugs (on rx Xanax). 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 Ambulation: independent IADLs Independent: shopping, housework, finances, food prep, telephone, transportation , medication admin. Employment History Employment: Employed Profession/Employer: [employer] Review of Systems Review of Systems: Full 14 point ROS otherwise noncontributory & as above. Review of Systems Constitutional: Reports: unexplained weight loss (12 lbs past 2 mos). Denies: chills, diaphoresis, fever, malaise, weakness. EENTM: Denies: blurred vision, double vision, visual changes, eye pain, eye drainage, eye tearing, icterus, ear discharge, ear pain, ear redness, hearing changes, nasal congestion, epistaxis, nasal pain, throat pain, throat swelling, mouth pain, tooth pain. Cardiovascular: Denies: chest pain, edema, orthopena, palpitations, peripheral edema, syncope. Respiratory: Denies: cough, hemoptysis, orthopnea, short of breath, sputum production, stridor, wheezing. GI: Reports: abdominal pain (mild), diarrhea (improving), nausea, bloody stool ( improving). Denies: bloating, constipation, distention, bowel incontinence, melena, changes in stool, vomiting, steatorrhea. Genitourinary: Denies: discharge, dysuria, frequency, hematuria, hesitation, nocturia, pain, urgency. Musculoskeletal: Reports: joint pain (right hand post trauma;chronic). Denies: back pain, gout, joint swelling, muscle pain, muscle stiffness, neck pain. Skin: Denies: cysts, change in skin color, change in hair/nails, dryness, erythema, jaundice, lesions, lymphangitis, lumps, moles, rash. Neurological/Psychological: Reports: anxiety, depressed, emotional problems. Denies: ataxia, cognitive dysfunction, confusion, dementia, headache, numbness, paresthesia, pre-existing deficit, petit mal seizures, tingling, tremors, tonic-clonic seizures, unable to move lower ext, unable to move upper ext, weakness. Hematologic/Endocrine: Denies: bruising, bleeding, polyuria, polydipsia. Immunologic/Allergic: Denies: splenectomy, HIV/AIDS, lymphadenopathy. All Other Systems: Reviewed and Negative Exam & Diagnostic Data Vital Signs and I&O Vital Signs Date Time Temp Pulse Resp B/P B/P Pulse O2 O2 Flow FiO2 Mean Ox Delivery Rate 04/24 0800 97 Room Air 04/24 0624 98.3 69 20 102/62 93 04/24 0300 99.8 91 18 100/64 94 Room Air 04/24 0054 97.7 76 18 100/64 95 Room Air 04/23 2312 98.2 100 18 137/76 94 Room Air 04/23 2127 Room Air 04/23 2024 98.5 87 18 116/82 96 Room Air Intake & Output 04/24 1600 04/24 0400 04/23 1600 04/23 0400 04/22 1600 04/22 0400 Intake Total 600 1000 Output Total 301 Balance 299 1000 Intake, IV 600 1000 Output, Stool 1 Output, Urine 300 Patient 100 lb 147 lb Weight Weight Bed scale Bed scale Measurement Method Physical Exam: Well-developed, well-nourished, pleasant, slightly anxious female, non-toxic appearing, in no apparent distress. Sclera anicteric. Conjunctiva pink. Oropharynx clear. No oral thrush. No aphthous ulcers. There is no adenopathy, thyromegaly, or JVD. No peripheral stigmata of inflammatory bowel disease or chronic liver disease on exam, except for perhaps 1 faint spider on the anterior chest wall. No CVA tenderness. No spine tenderness. Breast & pelvic exams: API. Lungs: clear to A&P. No wheezing, rales, or rhonchi. Heart exam: regular rate rhythm S1 and S2 without any murmur. Abdominal exam: normal bowel sounds, soft belly, minimally distended, nontender, without guarding or rebound. No mass. No organomegaly. *Negative Pérez sign (known gallstones on CT). No fluid shift. No pulsatile mass. No epigastric bruit. Clinically, without megacolon. Digital rectal exam: refused by patient. Extremities: without C, C, or E. No palpable cords. No rash. Mild chronic arthropathy right hand, otherwise none. No palmar erythema. No Dupuytren's contractures. Distal pulses 2+ bilaterally. DTRs 2+ bilaterally. Right handed. Alert and oriented x 3. Motor 5/5 B/L. CN II -XII intact. A detailed exam for peripheral neuropathy was deferred. No tremor. No asterixis. Results Pertinent Lab Results: Laboratory Tests 04/24 04/23 0637 2307 Chemistry Sodium (137 - 145 mmol/L) 137 Potassium (3.5 - 5.1 mmol/L) 3.3 L Chloride (98 - 107 mmol/L) 103 Carbon Dioxide (22 - 30 mmol/L) 25 Anion Gap (5 - 16) 8 BUN (7 - 17 mg/dL) 11 Creatinine (0.5 - 1.0 mg/dL) 0.6 Estimated GFR (>60 ml/min) > 60 BUN/Creatinine Ratio (7 - 25 %) 18.3 Hematology CBC w Diff NO MAN DIFF REQ WBC (4.8 - 10.8 /CUMM) 19.4 H RBC (4.20 - 5.40 /CUMM) 4.55 Hgb (12.0 - 16.0 G/DL) 14.0 Hct (37 - 47 %) 41.5 MCV (81.0 - 99.0 FL) 91.1 MCH (27.0 - 31.0 PG) 30.8 MCHC (33.0 - 37.0 G/DL) 33.8 RDW (11.5 - 14.5 %) 13.7 Plt Count (130 - 400 /CUMM) 491 H MPV (7.4 - 10.4 FL) 8.1 Gran % (42.2 - 75.2 %) 93.3 H Lymphocytes % (20.5 - 51.1 %) 6.2 L Monocytes % (1.7 - 9.3 %) 0.3 L Eosinophils % (0 - 5 %) 0.1 Basophils % (0.0 - 2.0 %) 0.1 Absolute Granulocytes (1.4 - 6.5 /CUMM) 18.1 H Absolute Lymphocytes (1.2 - 3.4 /CUMM) 1.2 Absolute Monocytes (0.10 - 0.60 /CUMM) 0.1 Absolute Eosinophils (0.0 - 0.7 /CUMM) 0 Absolute Basophils (0.0 - 0.2 /CUMM) 0 Urines Urine Color (YEL,AMB,STR) YEL Urine Clarity (CLEAR) CLEAR Urine pH (5.0 - 8.0) 6.5 Ur Specific [place] (1.001 - 1.035) <= 1.005 Urine Protein (NEG,<30 MG/DL) NEG Urine Ketones (NEG) NEG Urine Nitrite (NEG) NEG Urine Bilirubin (NEG) NEG Urine Urobilinogen (0.1 - 1.0 EU/dl) 0.2 Ur Leukocyte Esterase (NEG) SMALL H Ur Microscopic SEDIMENT EXAMINED Urine RBC (0 - 5 /HPF) 1-3 Urine WBC (0 - 2 /HPF) 3-5 H Ur Epithelial Cells (NONE,FEW) FEW Urine Bacteria (NEG/NONE) RARE H Urine Hemoglobin (NEG) NEG Urine Glucose (N MG/DL) NEG 04/23 Chemistry Sodium (137 - 145 mmol/L) 134 L Potassium (3.5 - 5.1 mmol/L) 3.5 Chloride (98 - 107 mmol/L) 96 L Carbon Dioxide (22 - 30 mmol/L) 28 Anion Gap (5 - 16) 9 BUN (7 - 17 mg/dL) 14 Creatinine (0.5 - 1.0 mg/dL) 0.9 Estimated GFR (>60 ml/min) > 60 BUN/Creatinine Ratio (7 - 25 %) 15.6 Glucose (65 - 99 mg/dL) 144 H Calcium (8.4 - 10.2 mg/dL) 8.4 Total Bilirubin (0.2 - 1.3 mg/dL) 1.4 H AST (14 - 36 U/L) 30 ALT (9 - 52 U/L) 105 H Alkaline Phosphatase (<127 U/L) 191 H Troponin I (< 0.11 ng/ml) < 0.01 Total Protein (6.3 - 8.2 g/dL) 5.8 L Albumin (3.5 - 5.0 g/dL) 2.7 L Globulin (1.9 - 4.2 gm/dL) 3.1 Albumin/Globulin Ratio (1.1 - 2.2 %) 0.9 L Lipase (23 - 300 U/L) 155 Coagulation PT (9.4 - 12.5 SEC) 13.6 H INR (0.90 - 1.19) 1.24 H APTT (25 - 37 SEC) 31 Hematology CBC w Diff NO MAN DIFF REQ WBC (4.8 - 10.8 /CUMM) 21.6 H RBC (4.20 - 5.40 /CUMM) 5.26 Hgb (12.0 - 16.0 G/DL) 16.2 H Hct (37 - 47 %) 47.1 H MCV (81.0 - 99.0 FL) 89.6 MCH (27.0 - 31.0 PG) 30.8 MCHC (33.0 - 37.0 G/DL) 34.4 RDW (11.5 - 14.5 %) 13.2 Plt Count (130 - 400 /CUMM) 594 H MPV (7.4 - 10.4 FL) 8.4 Gran % (42.2 - 75.2 %) 78.3 H Lymphocytes % (20.5 - 51.1 %) 13.1 L Monocytes % (1.7 - 9.3 %) 6.7 Eosinophils % (0 - 5 %) 1.1 Basophils % (0.0 - 2.0 %) 0.8 Absolute Granulocytes (1.4 - 6.5 /CUMM) 16.9 H Absolute Lymphocytes (1.2 - 3.4 /CUMM) 2.8 Absolute Monocytes (0.10 - 0.60 /CUMM) 1.4 H Absolute Eosinophils (0.0 - 0.7 /CUMM) 0.2 Absolute Basophils (0.0 - 0.2 /CUMM) 0.2 Imaging/Other Studies: 04/17/18: EKG- NSR @ 92, nl axis, nl int, NSST. 04/17/18: CT ABD & PELVIS W IV CONTRAST- 1. Findings are consistent with active ulcerative colitis. No bowel perforation, megacolon, or abscess. Elongated ascending colon, with cecum in left mid- abdomen. Patent celiac, SMA, MALENA. Normal aorta. 2. Cholelithiasis without cholecystitis, CBD 4 mm, normal liver, normal spleen & pancreas. 3. Mild DJD T-L spine. No sacroiliitis. 04/23/18: CT ABD & PELVIS W IV CONTRAST- Similar appearance of active ulcerative colitis with pancolonic inflammation and wall thickening. No evidence of perforation. No fluid collection. Cholelithiasis. No dilated ducts or cholecystitis. Normal liver. Assessment/Plan Assessment/Recommendations: 62 y/o female, remote hx 11/22/06: collagenous colitis via bxs, *later progressing to ulcerative colitis on repeat bxs (10/18/09 & 05/06/10), followed by Dr. Gordon for GI. (*The patient later stated her colitis was diagnosed at age 26, in 1981). The patient is a remote 6-pack-year cigarette smoker, stopping 1978. She also has a hx of EtOH abuse (wine- which she downplayed), anxiety, depression, DJD, & asthma. +FHx colon Ca (M- Britta Walter- late onset 84 in the setting of UC, 89). +FHx IBD (M- UC). She denied any additional FHx GI Ca, GI disease, or inherited liver disease. 07/18/13: Colonoscopy to cecum for UC surveillance, per Dr. Gordon-mildly active colitis from the rectum to the cecum, with erythema, friability, and a few superficial erosions. No raised lesions were seen. Small internal and external hemorrhoids. Numerous random 4 quadrant biopsies were obtained for surveillance purposes, revealing mild to severe chronic colitis with mild acute activity, in a continuous fashion, from the rectum to the cecum, more so proximally > distally, without dysplasia or Ca. She was most recently seen in the office by Dr. Gordon 04/14/18, previously seen by him 12/19/15. She previously was not compliant with office follow-up, nor with colonoscopy for continued CRC surveillance. She was found to have abnormal LFTs in 2015 and an ultrasound was advised then, but the patient was not compliant with this. She was drinking alcohol at that time. She was supposed to have been on Lialda, but it was too expensive, and she stopped it on her own in 02/2018, followed by worsening of her symptoms. She previously had achieved clinical remission on Mesalamine, but stopped it. When she saw Dr. Gordon , she was having 7 loose bowel movements a day, without any noticeable blood. She tried Imodium, with only partial relief. She had mild abdominal cramping, unrelated to eating. Her appetite was poor. She also noted intermittent heartburn and bilious vomiting, without any dysphagia or hematemesis. She denied any jaundice, abdominal swelling, or peripheral edema. When last seen by Dr. Gordon on 04/14/18, he restarted her mesalamine. He gave her a discount card for Apriso 1.5 g daily. As it had been 5 years from her last colonoscopy, he advised a repeat colonoscopy for surveillance purposes, which was tentatively scheduled for 05/24/18. He also advised checking her LFTs (possibly from a combination of ANGULO & EtOH, although her ratios were not typical for pure EtOH hepatitis). He also ordered an ultrasound. *Her LFTs have dated back several years, with + GGT. He felt that her reflux could be treated with Tums or H2 blockers, with the caveat that if it worsened, to rx PPI, with a low threshold to do an EGD. 05/01/09: Hep A Ab, Hep Bs Ag, Hep B core Ag, & Hep C Ab- all neg. 10/09/09: nl IgA 223, tTG Ab & DGP Ab- negative. 03/12/10: AMA < 0.1, anti-smooth muscle Ab- neg, ELVIN- neg. 01/31/11: EtOH < 10 04/13/18: *fecal calprotectin 1109.7 04/13/18: C. difficile toxin A&B- negative. 04/14/18: Dr. Gordon- glu 184, BUN/Cr 11/0.9, GFR > 60, Na 135, K 3.4, HCO3 20, AG 17, Ca 9.1, alb 3.7, glob 3.4, TBil 1.3, alk phos 141, AST 24, ALT 27, Fe 25, TIBC 264 (*c/w chronic disease), ferritin 248, B12 739, folate 17.4, Vit D 22.5, WBC 24.6 (63S/10B/18L/8M/1E), H/H 16.7/49.2, MCV 90.8, RDW 12.4, PLT 429 The patient went to the [facility] 04/17/18, arriving at 12:01 p.m., complaining of a flare of her ulcerative colitis, with bloody diarrhea. At that time, she was hemodynamically stable (BP 125/86), except for being borderline tachycardic (P 103), and afebrile, with O2 sat RA 98%. Her pulse normalized with IV fluids. Her temp peaked at 99.5. She was given IV NS, KCl, & IV Solucortef 100 mg. She had leukocytosis and appeared to be hemoconcentrated 04/17/18: WBC 29.9 (67S/5B/17L/11M; *reportedly not on steroids then), H/H 16.9/ 50.1, MCV 90.3, RDW 12.4, PLT 497, glu 148, BUN/Cr 11/0.9, GFR > 60, Na 133, K 3.3, HCO3 30, AG 12, lactate 1.7, lipase 93, Mg 2.3, Ca 8.7, alb 3.4, glob 3.4, TBil 1.3, alk phos 246, AST 45, ALT 55, *CRP > 9.0 (no ESR). 04/17/18: EKG- NSR @ 92, nl axis, nl int, NSST. 04/17/18: CT ABD & PELVIS W IV CONTRAST- 1. Findings are consistent with active ulcerative colitis. No bowel perforation, megacolon, or abscess. Elongated ascending colon, with cecum in left mid- abdomen. Patent celiac, SMA, MALENA. Normal aorta. 2. Cholelithiasis without cholecystitis, CBD 4 mm, normal liver, normal spleen & pancreas. 3. Mild DJD T-L spine. No sacroiliitis. *Apparently, the [facility] spoke with Dr. Evan galdamez, and the patient was sent home on Prednisone 60 mg daily, with plans for a follow-up OV on 04/28/18. The patient returned to the [facility] ER 04/23/18, arriving 8:19 p.m., with persistent flare symptoms of her ulcerative colitis, complaining of nausea without vomiting, & multiple episodes of bloody diarrhea, despite Prednisone 60 mg daily & Apriso 1.5g daily). Upon arrival, 116/82, P 87, R 18, T 98.5, O2 sat RA 96%. 04/23/18: 2121- Admission labs- WBC 21.6 (78% gran/17 gran Ab), H/H 16.2/47.1, MCV 89.6, RDW 13.2, PLT 594, PT 13.6, INR 1.24, PTT 31, glu 144, BUN/Cr 14/0.9, GFR > 60, Na 134, K 3.5, HCO3 28, AG 9, lipase 155, Ca 8.4, alb 2.7, glob 3.1, TBil 1.4, alk phos 191, AST 30, ALT 105, troponin < 0.01; U/A- clear yellow, < 1.005, 6.5, 1-3 RBC, 3-5 WBC, micro- otherwise neg, neg nitrite, small esterase. 04/23/18: CT ABD & PELVIS W IV CONTRAST- Similar appearance of active ulcerative colitis with pancolonic inflammation and wall thickening. No evidence of perforation. No fluid collection. Cholelithiasis. No dilated ducts or cholecystitis. Normal liver. She was given IV NS, Zofran, Phenergan, & SoluMedrol 40 mg IV Q12h. the ER contacted me, and I advised that the patient be admitted for IV therapy. She had never been on 6MP or biologic agents. *Again, compliance had been an issue in the past (along with EtOH, anxiety, etc). 04/24/18: C. difficile toxin A&B- negative. 04/24/18: 0637- WBC 19.4 (93% gran/18 gran Ab), H/H 14/41.5, MCV 91.1, RDW 13.7, PLT 491, BUN/Cr 11/0.6, GFR > 60, Na 137, K 3.3, HCO3 25, AG 8. The patient denied any recent outpatient antibiotics or NSAID use. She claimed her diarrhea was improving after being started on IV steroids. As of 04/24/18, the patient remained hemodynamically stable, with Tm 99.8 ( currently 98.3), with O2 sat RA 96%. The patient stated she had minimal diarrhea with only scant rectal bleeding. Her reflux was minimal. She denied any odynophagia, dysphagia, early satiety, hematemesis, or melena. Her nausea was fair, without any vomiting. She denied any jaundice, dark urine, light stools, or pruritus. She had known gallstones, but had no RUQ symptoms. She claimed she lost 12 pounds over the past couple of months. Her appetite was fair. She denied any rashes, fevers, chills, night sweats, CP, or SOB. She had chronic arthralgias in her right hand after sustaining trauma there, but otherwise denied any additional arthralgias. She denied any constipation, obstipation, tenesmus, or change in stool caliber. She denied any prior surgery. She denied any raw food or recent travel. Clinically, the patient had a flare of her ulcerative colitis. She had a markedly elevated 04/13/18: fecal calprotectin 1109.7 & 04/17/18: elevated CRP > 9.0. She was noncompliant with her outpatient Mesalamine, stopping this on her own, due to cost. She previously had been stable on Mesalamine. She had never been on biologic agents or immunomodulators, such as 6-MP. The patient's intermittent history of EtOH abuse (which she was downplaying), and her anxiety certainly may have contributed to her repeated noncompliance with office follow-up, labs, and surveillance colonoscopies. Her last 07/18/13: colonoscopy to the cecum with surveillance bxs- mild to severe chronic colitis with mild acute activity, with pancolitis, no dysplasia or Ca. The +FHx late onset colon Ca- 85, in the setting of UC (pt's M), was noted. 04/13/12 & 04/24/18: C. difficile 2- negative. Doubt infectious colitis. The chronically abnormal LFTs were noted. This was not in a pattern typical for EtOH hepatitis. She may have underlying ANGULO, superimposed on her intermittent EtOH abuse. Numerous remote prior serologies were negative, including markers for viral hepatitis, AIH, & PBC. Recent Fe studies were consistent with chronic disease. There was no evidence of Fe overload by labs. The cholelithiasis is most likely incidental in nature. Other entities to consider in a patient with UC could include pericholangitis or PSC. She was mildly malnourished by labs. Her leukocytosis most likely was related to her Prednisone use, although some of this predated it. Her mild hypoK+ was most likely from the diarrhea. In any event, the patient appeared to be clinically improving on IV steroids. *The risks & benefits of prednisone/IV steroid use were discussed with the patient in detail (including but not limited to HTN, DM, infection, impaired wound healing, osteoporosis, AVN, emotional lability, cataracts, fluid retention, etc.), and she wished to continue this. She was made aware that Prednisone therapy is used to induce remission, not to maintain remission in IBD, and that she would need more long-term medications after discharge, such as biologic agents or 6-MP. She was made aware that these have additional side effects, which will again be discussed with her by Dr. Gordon as an outpatient. She was also made aware that she would have to be vigilant with follow-up and compliance, if she were put on these. Her anxiety and intermittent EtOH use had previously interfered with her follow-up. She was well aware she was overdue for follow-up surveillance colonoscopy. SUGGEST- Continue IV SoluMedrol 40 mg Q12h for now. Add Mesalamine 1600 mg po TID. Add Rowasa enemas 4g pr Qhs. Advise close follow-up of Accu-Checks per medical team, on steroids. IV fluids. Antiemetics as needed. Clears po & eventually advance to low residue diet, as tolerated. Add polymeric supplements, such as BOOST or Ensure Plus TID. Serial CBCs. Follow-up electrolytes. Replete K+. Check stool for C&S, Shiga toxin, Giarddia Ag, Crypto Ag, Vibrio, & Yersinia (C. diff x 2- neg). Serial abdominal exams. Anxiolytic therapy, per medical team. If the patient does not continue to improve on IV steroids, she may need an inpatient flex sig with biopsies to rule out CMV, etc. Otherwise, if the patient continues to improve on IV steroids, she will need close outpatient follow-up with Dr. Gordon, for a full surveillance colonoscopy with random biopsies, that had been tentatively scheduled for 05/24/18. Additionally, he will consider the logistics of starting her on either biologic agents and/or 6MP, prior to her steroids being tapered off, keeping in mind her underlying anxiety & intermittent EtOH issues, with noncompliance. She may ultimately need a liver biopsy or MRCP ( rule out pericholangitis, PSC, ANGULO, etc), keeping in mind her UC. Her EtOH hx may be contributory, but her LFT pattern was atypical for pure EtOH hepatitis. Recent iron studies were consistent with chronic disease. As her prior serologies were remote, and she is being considered for biologic and/or immunomodulators therapy, advise: Hep A Ab, Hep Bs Ag, Hep Bs Ab, Hep B core Ab, Hep C Ab, HIV, ELVIN, AMA, anti-smooth muscle Ab, anti-LKM Ab, A1AT, TPMT activity , QuantiFERON TB testing. I spoke with the patient's RN, who will convey the above GI consult to the medical housestaff. Further GI recommendations to follow, depending on clinical course. Problem List: 1. Ulcerative colitis 2. Bloody diarrhea 3. Abdominal pain 4. Abnormal LFTs 5. Cholelithiasis 6. Nausea 7. Malnutrition 8. Leukocytosis 9. Hypokalemia 10. Family history of colon cancer in mother 11. Family history of ulcerative colitis Copies To: Vera VALENTINE,Andrey; Scarlett Coughlin; Coni VALENTINE,Leonora Carter; Evan VALENTINE, Aamir; Nikunj Auguste DO. Consult Acknowledgment - Thank you for your consult request.
[2018-04-24 22:50] VITALS: BP 112/62
[2018-04-25 07:07] VITALS: BP 113/76
--- NOTE | 2018-04-25 07:40 | PN- Housestaff ---
Cristal Ramos 04/25/18 0740: Subjective Follow-up For: UC flare Subjective: Patient was seen and examined at bedside today. She says she feels better. She says she has had several bowel movements but none of them have been bloody. She complains of mild diffuse abdominal pain. She wanted to know the reason she was being given the enema. She was explained and reassured. She wants to know if could have a [place]ale. She denies fever, chillls, nausea, vomiting. Review of Systems Constitutional: Reports: see HPI. Objective Last 24 Hrs of Vital Signs/I&O Vital Signs Date Time Temp Pulse Resp B/P B/P Pulse O2 O2 Flow FiO2 Mean Ox Delivery Rate 04/25 0800 96 Room Air 04/25 0707 98.4 63 18 113/76 96 04/24 2250 98.4 67 18 112/62 96 Room Air 04/24 1457 98.3 68 18 121/79 96 Intake & Output 04/25 1600 04/25 0800 04/25 0000 Intake Total 1200 Output Total Balance 1200 Intake, IV 1200 Intake, Oral 0 Number 1 Bowel Movements Physical Exam General Appearance: Alert, Oriented X3, Cooperative, No Acute Distress Skin: No Rashes Neck: Supple Cardiovascular: Regular Rate, Normal S1, Normal S2 Lungs: Clear to Auscultation Abdomen: Normal Bowel Sounds, diffuse mild tenderness Assessment/Plan Assessment: 62-year-old female history of asthma, ulcerative colitis presents for reevaluation of abdominal pain and bloody diarrhea and nausea and vomiting after she was discharged home from the ED on a steroid taper. She still has leukocytosis on labs, however this is in the setting of steroid use and has been afebrile. She is admitted for an acute flare of ulcerative colitis. Problem List 1.Acute Flare of Ulcerative Colitis 2.Intractable Nausea 3.Hyponatremia likely 2/2 diarrhea 4.Bloody stools (resolved for now) 5.Elevated ALT 1.Ulcerative Colitis Flare -Recieved Solumedrol in ED, will continue with 40mg IV q12 -Gastro consult appreciated. Will follow up on recs * Patient was started on Mesalamine 1600mg * She was given Rowasa enema * We are starting her on a clear liquid diet for now. Will slowly advance her to a low residue diet with Boost and Ensure. * Her K has been repleted and is 3.5 today. * Per GI, she might need an inpatient sigmoidoscopy if her symptoms do not improve * She is scheduled for an outpatient full surveillenace colonoscopy next month. -We will f/u on her stool cultures -IVF -Phenergen and Tigan as needed to control nausea 3.Bloody Stools (resolved for now) -Hemoglobin stable -Will trend CBC 4.ALT elevation -CT A/P on 04/17 shows biliary sludge DVT PPx: ALPS only, no heparin 2/2 bloody stool IV access NPO Problem List: 1. Hypokalemia 2. Leukocytosis 3. Ulcerative colitis Pain Ratin Pain Location: diffuse abdominal pain Pain Goal: Pain 4 or less Pain Plan: pathway Tomorrow's Labs & Rationales: cbc and bep Apryl Bates 04/25/18 1558: Attending MD Review Statement Attending Statement Attending MD Statement: examined this patient, discuss w/resident/PA/OBSTETRICS TECH, agreed w/resident/PA/OBSTETRICS TECH, reviewed EMR data (avail), discussed with nursing, discussed with case mgmt Attending Assessment/Plan: Ulcerative colitis flare up. - improving now. will f/u on GI recommendations. on rowasa enema, mesalamine and steorids.
[2018-04-25 08:58] LABS: ABSOLUTE BASOPHIL COUNT 0 /CUMM (0.0-0.2); ABSOLUTE EOSINOPHIL COUNT 0 /CUMM (0.0-0.7); ABSOLUTE GRANULOCYTE CT 19.3 /CUMM (1.4-6.5); ABSOLUTE LYMPH COUNT 1.3 /CUMM (1.2-3.4); ABSOLUTE MONOCYTE COUNT 0.3 /CUMM (0.10-0.60); BASOPHIL % 0.1 % (0.0-2.0); EOSINOPHIL % 0.1 % (0-5); GRANULOCYTE % 92.2 % (42.2-75.2); HEMATOCRIT 44.8 % (37-47); MEAN CORPUSCULAR HGB 30.8 PG (27.0-31.0); MEAN CORPUSCULAR HGB CONC 33.8 G/DL (33.0-37.0); MEAN CORPUSCULAR VOLUME 91.2 FL (81.0-99.0); MEAN PLATELET VOLUME 8.6 FL (7.4-10.4); PLATELET COUNT 525 /CUMM (130-400); RBC DISTRIBUTION WIDTH 13.8 % (11.5-14.5); RED BLOOD CELL CT 4.91 /CUMM (4.20-5.40)
[2018-04-25 14:13] VITALS: BP 112/68
[2018-04-25 22:00] VITALS: BP 143/99
--- NOTE | 2018-04-25 22:58 | PN- Gastroenterology ---
Assessment/Plan GI Assessment/Recommendations: 62 y/o female, remote hx 11/22/06: collagenous colitis via bxs, *later progressing to ulcerative colitis on repeat bxs (10/18/09 & 05/06/10), followed by Dr. Gordon for GI. (*The patient later stated her colitis was diagnosed at age 26, in 1981). The patient is a remote 6-pack-year cigarette smoker, stopping 1978. She also has a hx of EtOH abuse (wine- which she downplayed), anxiety, depression, DJD, & asthma. +FHx colon Ca (M- Britta Walter- late onset 84 in the setting of UC, 89). +FHx IBD (M- UC). She denied any additional FHx GI Ca, GI disease, or inherited liver disease. 07/18/13: Colonoscopy to cecum for UC surveillance, per Dr. Gordon-mildly active colitis from the rectum to the cecum, with erythema, friability, and a few superficial erosions. No raised lesions were seen. Small internal and external hemorrhoids. Numerous random 4 quadrant biopsies were obtained for surveillance purposes, revealing mild to severe chronic colitis with mild acute activity, in a continuous fashion, from the rectum to the cecum, more so proximally > distally, without dysplasia or Ca. She was most recently seen in the office by Dr. Gordon 04/14/18, previously seen by him 12/19/15. She previously was not compliant with office follow-up, nor with colonoscopy for continued CRC surveillance. She was found to have abnormal LFTs in 2015 and an ultrasound was advised then, but the patient was not compliant with this. She was drinking alcohol at that time. She was supposed to have been on Lialda, but it was too expensive, and she stopped it on her own in 02/2018, followed by worsening of her symptoms. She previously had achieved clinical remission on Mesalamine, but stopped it. When she saw Dr. Gordon , she was having 7 loose bowel movements a day, without any noticeable blood. She tried Imodium, with only partial relief. She had mild abdominal cramping, unrelated to eating. Her appetite was poor. She also noted intermittent heartburn and bilious vomiting, without any dysphagia or hematemesis. She denied any jaundice, abdominal swelling, or peripheral edema. When last seen by Dr. Gordon on 04/14/18, he restarted her mesalamine. He gave her a discount card for Apriso 1.5 g daily. As it had been 5 years from her last colonoscopy, he advised a repeat colonoscopy for surveillance purposes, which was tentatively scheduled for 05/24/18. He also advised checking her LFTs (possibly from a combination of ANGULO & EtOH, although her ratios were not typical for pure EtOH hepatitis). He also ordered an ultrasound. *Her LFTs have dated back several years, with + GGT. He felt that her reflux could be treated with Tums or H2 blockers, with the caveat that if it worsened, to rx PPI, with a low threshold to do an EGD. 05/01/09: Hep A Ab, Hep Bs Ag, Hep B core Ag, & Hep C Ab- all neg. 10/09/09: nl IgA 223, tTG Ab & DGP Ab- negative. 03/12/10: AMA < 0.1, anti-smooth muscle Ab- neg, ELVIN- neg. 01/31/11: EtOH < 10 04/13/18: *fecal calprotectin 1109.7 04/13/18: C. difficile toxin A&B- negative. 04/14/18: Dr. Gordon- glu 184, BUN/Cr 11/0.9, GFR > 60, Na 135, K 3.4, HCO3 20, AG 17, Ca 9.1, alb 3.7, glob 3.4, TBil 1.3, alk phos 141, AST 24, ALT 27, Fe 25, TIBC 264 (*c/w chronic disease), ferritin 248, B12 739, folate 17.4, Vit D 22.5, WBC 24.6 (63S/10B/18L/8M/1E), H/H 16.7/49.2, MCV 90.8, RDW 12.4, PLT 429 The patient went to the [facility] 04/17/18, arriving at 12:01 p.m., complaining of a flare of her ulcerative colitis, with bloody diarrhea. At that time, she was hemodynamically stable (BP 125/86), except for being borderline tachycardic (P 103), and afebrile, with O2 sat RA 98%. Her pulse normalized with IV fluids. Her temp peaked at 99.5. She was given IV NS, KCl, & IV Solucortef 100 mg. She had leukocytosis and appeared to be hemoconcentrated 04/17/18: WBC 29.9 (67S/5B/17L/11M; *reportedly not on steroids then), H/H 16.9/ 50.1, MCV 90.3, RDW 12.4, PLT 497, glu 148, BUN/Cr 11/0.9, GFR > 60, Na 133, K 3.3, HCO3 30, AG 12, lactate 1.7, lipase 93, Mg 2.3, Ca 8.7, alb 3.4, glob 3.4, TBil 1.3, alk phos 246, AST 45, ALT 55, *CRP > 9.0 (no ESR). 04/17/18: EKG- NSR @ 92, nl axis, nl int, NSST. 04/17/18: CT ABD & PELVIS W IV CONTRAST- 1. Findings are consistent with active ulcerative colitis. No bowel perforation, megacolon, or abscess. Elongated ascending colon, with cecum in left mid- abdomen. Patent celiac, SMA, MALENA. Normal aorta. 2. Cholelithiasis without cholecystitis, CBD 4 mm, normal liver, normal spleen & pancreas. 3. Mild DJD T-L spine. No sacroiliitis. *Apparently, the [facility] spoke with Dr. Evan galdamez, and the patient was sent home on Prednisone 60 mg daily, with plans for a follow-up OV on 04/28/18. The patient returned to the [facility] ER 04/23/18, arriving 8:19 p.m., with persistent flare symptoms of her ulcerative colitis, complaining of nausea without vomiting, & multiple episodes of bloody diarrhea, despite Prednisone 60 mg daily & Apriso 1.5g daily). Upon arrival, 116/82, P 87, R 18, T 98.5, O2 sat RA 96%. 04/23/18: 2121- Admission labs- WBC 21.6 (78% gran/17 gran Ab), H/H 16.2/47.1, MCV 89.6, RDW 13.2, PLT 594, PT 13.6, INR 1.24, PTT 31, glu 144, BUN/Cr 14/0.9, GFR > 60, Na 134, K 3.5, HCO3 28, AG 9, lipase 155, Ca 8.4, alb 2.7, glob 3.1, TBil 1.4, alk phos 191, AST 30, ALT 105, troponin < 0.01; U/A- clear yellow, < 1.005, 6.5, 1-3 RBC, 3-5 WBC, micro- otherwise neg, neg nitrite, small esterase. 04/23/18: CT ABD & PELVIS W IV CONTRAST- Similar appearance of active ulcerative colitis with pancolonic inflammation and wall thickening. No evidence of perforation. No fluid collection. Cholelithiasis. No dilated ducts or cholecystitis. Normal liver. She was given IV NS, Zofran, Phenergan, & SoluMedrol 40 mg IV Q12h. the ER contacted me, and I advised that the patient be admitted for IV therapy. She had never been on 6MP or biologic agents. *Again, compliance had been an issue in the past (along with EtOH, anxiety, etc). 04/24/18: C. difficile toxin A&B- negative. 04/24/18: 0637- WBC 19.4 (93% gran/18 gran Ab), H/H 14/41.5, MCV 91.1, RDW 13.7, PLT 491, BUN/Cr 11/0.6, GFR > 60, Na 137, K 3.3, HCO3 25, AG 8. The patient denied any recent outpatient antibiotics or NSAID use. She claimed her diarrhea was improving after being started on IV steroids. As of 04/24/18, the patient remained hemodynamically stable, with Tm 99.8 ( currently 98.3), with O2 sat RA 96%. The patient stated she had minimal diarrhea with only scant rectal bleeding. Her reflux was minimal. She denied any odynophagia, dysphagia, early satiety, hematemesis, or melena. Her nausea was fair, without any vomiting. She denied any jaundice, dark urine, light stools, or pruritus. She had known gallstones, but had no RUQ symptoms. She claimed she lost 12 pounds over the past couple of months. Her appetite was fair. She denied any rashes, fevers, chills, night sweats, CP, or SOB. She had chronic arthralgias in her right hand after sustaining trauma there, but otherwise denied any additional arthralgias. She denied any constipation, obstipation, tenesmus, or change in stool caliber. She denied any prior surgery. She denied any raw food or recent travel. Clinically, the patient had a flare of her ulcerative colitis. She had a markedly elevated 04/13/18: fecal calprotectin 1109.7 & 04/17/18: elevated CRP > 9.0. She was noncompliant with her outpatient Mesalamine, stopping this on her own, due to cost. She previously had been stable on Mesalamine. She had never been on biologic agents or immunomodulators, such as 6-MP. The patient's intermittent history of EtOH abuse (which she was downplaying), and her anxiety certainly may have contributed to her repeated noncompliance with office follow-up, labs, and surveillance colonoscopies. Her last 07/18/13: colonoscopy to the cecum with surveillance bxs- mild to severe chronic colitis with mild acute activity, with pancolitis, no dysplasia or Ca. The +FHx late onset colon Ca- 84, in the setting of UC (pt's M), was noted. 04/13/12 & 04/24/18: C. difficile 2- negative. Doubt infectious colitis. The chronically abnormal LFTs were noted. This was not in a pattern typical for EtOH hepatitis. She may have underlying ANGULO, superimposed on her intermittent EtOH abuse. Numerous remote prior serologies were negative, including markers for viral hepatitis, AIH, & PBC. Recent Fe studies were consistent with chronic disease. There was no evidence of Fe overload by labs. The cholelithiasis is most likely incidental in nature. Other entities to consider in a patient with UC could include pericholangitis or PSC. She was mildly malnourished by labs. Her leukocytosis most likely was related to her Prednisone use, although some of this predated it. Her mild hypoK+ was most likely from the diarrhea. In any event, the patient appeared to be clinically improving on IV steroids. *The risks & benefits of prednisone/IV steroid use were discussed with the patient in detail (including but not limited to HTN, DM, infection, impaired wound healing, osteoporosis, AVN, emotional lability, cataracts, fluid retention, etc.), and she wished to continue this. She was made aware that Prednisone therapy is used to induce remission, not to maintain remission in IBD, and that she would need more long-term medications after discharge, such as biologic agents or 6-MP. She was made aware that these have additional side effects, which will again be discussed with her by Dr. Gordon as an outpatient. She was also made aware that she would have to be vigilant with follow-up and compliance, if she were put on these. Her anxiety and intermittent EtOH use had previously interfered with her follow-up. She was well aware she was overdue for follow-up surveillance colonoscopy. Would also consider checking a PANCA, which often is positive in UC & PSC. 04/24/18: stool C&S, C. diff, Shiga toxin, Yersinia, Vibrio, Giardia Ag, Crypto Ag- all neg. 04/24/18: *stool O&P- pending. 04/25/18: *ANCA-pending. 04/25/18: 0746- WBC 21 (92% gran/19 gran Ab), H/H 15.1/44.8, PLT 525, BUN/Cr 13/ 0.6, GFR > 60, Na 136, K 3.5, HCO3 24, AG 9 04/25/18: *Hep A Ab, Hep Bs Ag, Hep B core Ab, Hep C Ab- *all neg. *As of 04/25/18, the patient remained hemodynamically stable & afebrile, with O2 sat RA 95%. Her GI symptoms were improving on SoluMedrol 40 mg IV Q12h, Mesalamine 1.6 g TID, & Rowasa enema 4 g Qhs. She denied any fevers or chills. Her potassium had been repleted. Her leukocytosis persisted on steroids. Patient remained anxious- Xanax was rxd. Her diarrhea was becoming more solid. There was no overt bleeding. She denied any nausea or vomiting. She was ambulating. She tolerated clears. Her abdominal cramps seemed improved. SUGGEST- *Continue IV SoluMedrol 40 mg Q12h for now, & if remains stable, switch IV SoluMedrol to Prednisone 30 mg po BID on 04/26/18. *Continue Mesalamine 1600 mg po TID. Continue Rowasa enemas 4g pr Qhs. Advise close follow-up of Accu-Checks per medical team, on steroids. IV fluids. Antiemetics as needed. *Advance clears po to low residue diet, as tolerated. Continue supplements, such as BOOST or Ensure Plus TID. Serial CBCs. Follow-up electrolytes. Replete K+.*Await full stool workup (C. diff x 2- neg). Serial abdominal exams. Anxiolytic therapy, per medical team. If the patient does not continue to improve on IV steroids, she may need an inpatient flex sig with biopsies to rule out CMV, etc. Otherwise, if the patient continues to improve on steroids, she will need close outpatient follow-up with Dr. Gordon, for a full surveillance colonoscopy with random biopsies, that had been tentatively scheduled for 05/24/18. Additionally, he will consider the logistics of starting her on either biologic agents and/or 6MP, prior to her steroids being tapered off, keeping in mind her underlying anxiety & intermittent EtOH issues, with noncompliance. She may ultimately need a liver biopsy or MRCP (rule out pericholangitis, PSC, ANGULO, etc), keeping in mind her UC. Her EtOH hx may be contributory, but her LFT pattern was atypical for pure EtOH hepatitis. Recent iron studies were consistent with chronic disease. As her prior serologies were remote, and she is being considered for biologic and/or immunomodulators therapy, advise: (Hep A Ab, Hep Bs Ag, Hep B core Ab, Hep C Ab-> done), HIV, ELVIN, AMA, anti-smooth muscle Ab, anti-LKM Ab, A1AT, TPMT activity, QuantiFERON TB testing. Hopefully, the pt can be D/C on 04/26/18. Further GI recommendations to follow, depending on clinical course. Problem List: 1. Ulcerative colitis 2. Bloody diarrhea 3. Abdominal pain 4. Abnormal LFTs 5. Cholelithiasis 6. Nausea 7. Malnutrition 8. Leukocytosis 9. Hypokalemia 10. Family history of colon cancer in mother 11. Family history of ulcerative colitis Subjective Subjective: 04/24/18: stool C&S, C. diff, Shiga toxin, Yersinia, Vibrio, Giardia Ag, Crypto Ag- all neg. 04/24/18: *stool O&P- pending. 04/25/18: *ANCA-pending. 04/25/18: 0746- WBC 21 (92% gran/19 gran Ab), H/H 15.1/44.8, PLT 525, BUN/Cr 13/ 0.6, GFR > 60, Na 136, K 3.5, HCO3 24, AG 9 04/25/18: *Hep A Ab, Hep Bs Ag, Hep B core Ab, Hep C Ab- *all neg. *As of 04/25/18, the patient remained hemodynamically stable & afebrile, with O2 sat RA 95%. Her GI symptoms were improving on SoluMedrol 40 mg IV Q12h, Mesalamine 1.6 g TID, & Rowasa enema 4 g Qhs. She denied any fevers or chills. Her potassium had been repleted. Her leukocytosis persisted on steroids. Patient remained anxious- Xanax was rxd. Her diarrhea was becoming more solid. There was no overt bleeding. She denied any nausea or vomiting. She was ambulating. She tolerated clears. Her abdominal cramps seemed improved. Review of Systems: Full 14 point ROS otherwise noncontributory & as above. Review of Systems Constitutional: Reports: unexplained weight loss (12 lbs past 2 mos). Denies: chills, diaphoresis, fever, malaise, weakness. EENTM: Denies: blurred vision, double vision, visual changes, eye pain, eye drainage, eye tearing, icterus, ear discharge, ear pain, ear redness, hearing changes, nasal congestion, epistaxis, nasal pain, throat pain, throat swelling, mouth pain, tooth pain. Cardiovascular: Denies: chest pain, edema, orthopena, palpitations, peripheral edema, syncope. Respiratory: Denies: cough, hemoptysis, orthopnea, short of breath, sputum production, stridor, wheezing. GI: Reports: abdominal pain (improving), diarrhea (improving), bloody stool ( resolved). Denies: bloating, constipation, distention, bowel incontinence, melena, changes in stool, nausea, vomiting, steatorrhea. Genitourinary: Denies: discharge, dysuria, frequency, hematuria, hesitation, nocturia, pain, urgency. Musculoskeletal: Reports: joint pain (right hand post trauma;chronic). Denies: back pain, gout, joint swelling, muscle pain, muscle stiffness, neck pain. Skin: Denies: cysts, change in skin color, change in hair/nails, dryness, erythema, jaundice, lesions, lymphangitis, lumps, moles, rash. Neurological/Psychological: Reports: anxiety, depressed, emotional problems. Denies: ataxia, cognitive dysfunction, confusion, dementia, headache, numbness, paresthesia, pre-existing deficit, petit mal seizures, tingling, tremors, tonic-clonic seizures, unable to move lower ext, unable to move upper ext, weakness. Hematologic/Endocrine: Denies: bruising, bleeding, polyuria, polydipsia. Immunologic/Allergic: Denies: splenectomy, HIV/AIDS, lymphadenopathy. All Other Systems: Reviewed and Negative Objective Vital Signs and I&Os Vital Signs Date Time Temp Pulse Resp B/P B/P Pulse O2 O2 Flow FiO2 Mean Ox Delivery Rate 04/25 1413 98.2 72 16 112/68 95 Room Air 04/25 0800 96 Room Air 04/25 0707 98.4 63 18 113/76 96 04/24 2250 98.4 67 18 112/62 96 Room Air Intake & Output 04/25 1600 04/25 0400 04/24 1600 04/24 0400 04/23 1600 04/23 0400 Intake Total 5663 161 3079 Output Total 303 Balance 9653 542 9466 Intake, IV 1678 459 1587 Intake, Oral 400 120 Number 2 1 Bowel Movements Output, Stool 3 Output, Urine 300 Patient 100 lb 147 lb Weight Weight Bed scale Bed scale Measurement Method Physical Exam: Well-developed, well-nourished, pleasant, slightly anxious female, non-toxic appearing, in no apparent distress. Sclera anicteric. Conjunctiva pink. Oropharynx clear. No oral thrush. No aphthous ulcers. There is no adenopathy, thyromegaly, or JVD. No peripheral stigmata of inflammatory bowel disease or chronic liver disease on exam, except for perhaps 1 faint spider on the anterior chest wall. No CVA tenderness. No spine tenderness. Breast & pelvic exams: API. Lungs: clear to A&P. No wheezing, rales, or rhonchi. Heart exam: regular rate rhythm, S1 and S2, without any murmur. Abdominal exam: normal bowel sounds, soft belly, minimally distended, nontender, without guarding or rebound. No mass. No organomegaly. *Negative Pérez sign (known gallstones on CT). No fluid shift. No pulsatile mass. No epigastric bruit. Clinically, without megacolon. Digital rectal exam: refused by patient. Extremities: without C, C, or E. No palpable cords. No rash. Mild chronic arthropathy right hand, otherwise none. No palmar erythema. No Dupuytren's contractures. Distal pulses 2+ bilaterally. DTRs 2+ bilaterally. Right handed. Alert and oriented x 3. Motor 5/5 B/L. CN II-XII intact. A detailed exam for peripheral neuropathy was deferred. No tremor. No asterixis. Current Medications: Current Medications Sig/Kristine Start time Last Medication Dose Route Stop Time Status Admin Acetaminophen 650 MG Q6P PRN 04/23 2345 AC 04/25 PO 0400 Alprazolam 0.5 MG ONCE ONE 04/25 2230 UNVr 04/25 PO 04/25 223 2221 Alprazolam 0.5 MG ONCE PRN 04/24 2200 AC 04/25 PO 05/01 2159 2108 Budesonide/ 1 PUF BID 04/24 0900 AC 04/25 Formoterol Fumarate INH 1932 Mesalamine 1,600 MG TID 04/24 2100 AC 04/25 PO 193 Mesalamine 4 GM AT BEDTIME 04/24 2100 AC 04/25 NJ 1932 Methylprednisolone 40 MG Q12 04/23 2216 AC 04/25 IV 1932 Patient Medication 1 ED ONE ONE 04/25 0900 DC Teaching ED 04/25 0901 Potassium Chloride 40 MEQ ONCE ONE 04/25 0700 DC 04/25 PO 04/25 0701 0619 Promethazine HCl 25 MG Q6P PRN 04/24 0030 AC IV 05/01 0029 Sodium Chloride 1,000 ML .Q6H40M 04/24 1400 DC 04/24 IV 04/25 0319 2230 Results Pertinent Lab Results: Laboratory Tests 04/25 04/24 0746 0637 Chemistry Sodium (137 - 145 mmol/L) 136 L 137 Potassium (3.5 - 5.1 mmol/L) 3.5 3.3 L Chloride (98 - 107 mmol/L) 103 103 Carbon Dioxide (22 - 30 mmol/L) 24 25 Anion Gap (5 - 16) 9 8 BUN (7 - 17 mg/dL) 13 11 Creatinine (0.5 - 1.0 mg/dL) 0.6 0.6 Estimated GFR (>60 ml/min) > 60 > 60 BUN/Creatinine Ratio (7 - 25 %) 21.7 18.3 Hematology CBC w Diff MAN DIFF ORDERED NO MAN DIFF REQ WBC (4.8 - 10.8 /CUMM) 21.0 H 19.4 H RBC (4.20 - 5.40 /CUMM) 4.91 4.55 Hgb (12.0 - 16.0 G/DL) 15.1 14.0 Hct (37 - 47 %) 44.8 41.5 MCV (81.0 - 99.0 FL) 91.2 91.1 MCH (27.0 - 31.0 PG) 30.8 30.8 MCHC (33.0 - 37.0 G/DL) 33.8 33.8 RDW (11.5 - 14.5 %) 13.8 13.7 Plt Count (130 - 400 /CUMM) 525 H 491 H MPV (7.4 - 10.4 FL) 8.6 8.1 Gran % (42.2 - 75.2 %) 92.2 H 93.3 H Lymphocytes % (20.5 - 51.1 %) 6.3 L 6.2 L Monocytes % (1.7 - 9.3 %) 1.3 L 0.3 L Eosinophils % (0 - 5 %) 0.1 0.1 Basophils % (0.0 - 2.0 %) 0.1 0.1 Absolute Granulocytes (1.4 - 6.5 /CUMM) 19.3 H 18.1 H Absolute Lymphocytes (1.2 - 3.4 /CUMM) 1.3 1.2 Absolute Monocytes (0.10 - 0.60 /CUMM) 0.3 0.1 Absolute Eosinophils (0.0 - 0.7 /CUMM) 0 0 Absolute Basophils (0.0 - 0.2 /CUMM) 0 0 Platelet Estimate (ADEQUATE) INCREASED Normocytic RBCs VERIFIED Normochromic RBCs VERIFIED Immunology ANCA Pending Serology Hepatitis A IgM Ab (NONREACTIVE) NONREACTIVE Hep Bs Antigen (NONREACTIVE) NONREACTIVE Hep B Core IgM Ab Conf (NONREACTIVE) NONREACTIVE Hepatitis C Antibody (NONREACTIVE) NONREACTIVE 04/23 04/23 2307 2122 Chemistry Sodium (137 - 145 mmol/L) 134 L Potassium (3.5 - 5.1 mmol/L) 3.5 Chloride (98 - 107 mmol/L) 96 L Carbon Dioxide (22 - 30 mmol/L) 28 Anion Gap (5 - 16) 9 BUN (7 - 17 mg/dL) 14 Creatinine (0.5 - 1.0 mg/dL) 0.9 Estimated GFR (>60 ml/min) > 60 BUN/Creatinine Ratio (7 - 25 %) 15.6 Glucose (65 - 99 mg/dL) 144 H Calcium (8.4 - 10.2 mg/dL) 8.4 Total Bilirubin (0.2 - 1.3 mg/dL) 1.4 H AST (14 - 36 U/L) 30 ALT (9 - 52 U/L) 105 H Alkaline Phosphatase (<127 U/L) 191 H Troponin I (< 0.11 ng/ml) < 0.01 Total Protein (6.3 - 8.2 g/dL) 5.8 L Albumin (3.5 - 5.0 g/dL) 2.7 L Globulin (1.9 - 4.2 gm/dL) 3.1 Albumin/Globulin Ratio (1.1 - 2.2 %) 0.9 L Lipase (23 - 300 U/L) 155 Hematology CBC w Diff NO MAN DIFF REQ WBC (4.8 - 10.8 /CUMM) 21.6 H RBC (4.20 - 5.40 /CUMM) 5.26 Hgb (12.0 - 16.0 G/DL) 16.2 H Hct (37 - 47 %) 47.1 H MCV (81.0 - 99.0 FL) 89.6 MCH (27.0 - 31.0 PG) 30.8 MCHC (33.0 - 37.0 G/DL) 34.4 RDW (11.5 - 14.5 %) 13.2 Plt Count (130 - 400 /CUMM) 594 H MPV (7.4 - 10.4 FL) 8.4 Gran % (42.2 - 75.2 %) 78.3 H Lymphocytes % (20.5 - 51.1 %) 13.1 L Monocytes % (1.7 - 9.3 %) 6.7 Eosinophils % (0 - 5 %) 1.1 Basophils % (0.0 - 2.0 %) 0.8 Absolute Granulocytes (1.4 - 6.5 /CUMM) 16.9 H Absolute Lymphocytes (1.2 - 3.4 /CUMM) 2.8 Absolute Monocytes (0.10 - 0.60 /CUMM) 1.4 H Absolute Eosinophils (0.0 - 0.7 /CUMM) 0.2 Absolute Basophils (0.0 - 0.2 /CUMM) 0.2 Urines Urine Color (YEL,AMB,STR) YEL Urine Clarity (CLEAR) CLEAR Urine pH (5.0 - 8.0) 6.5 Ur Specific Backus (1.001 - 1.035) <= 1.005 Urine Protein (NEG,<30 MG/DL) NEG Urine Ketones (NEG) NEG Urine Nitrite (NEG) NEG Urine Bilirubin (NEG) NEG Urine Urobilinogen (0.1 - 1.0 EU/dl) 0.2 Ur Leukocyte Esterase (NEG) SMALL H Ur Microscopic SEDIMENT EXAMINED Urine RBC (0 - 5 /HPF) 1-3 Urine WBC (0 - 2 /HPF) 3-5 H Ur Epithelial Cells (NONE,FEW) FEW Urine Bacteria (NEG/NONE) RARE H Urine Hemoglobin (NEG) NEG Urine Glucose (N MG/DL) NEG 04/23 2112 Coagulation PT (9.4 - 12.5 SEC) 13.6 H INR (0.90 - 1.19) 1.24 H APTT (25 - 37 SEC) 31 Imaging/Other Studies: 04/17/18: EKG- NSR @ 92, nl axis, nl int, NSST. 04/17/18: CT ABD & PELVIS W IV CONTRAST- 1. Findings are consistent with active ulcerative colitis. No bowel perforation, megacolon, or abscess. Elongated ascending colon, with cecum in left mid- abdomen. Patent celiac, SMA, MALENA. Normal aorta. 2. Cholelithiasis without cholecystitis, CBD 4 mm, normal liver, normal spleen & pancreas. 3. Mild DJD T-L spine. No sacroiliitis. 04/23/18: CT ABD & PELVIS W IV CONTRAST- Similar appearance of active ulcerative colitis with pancolonic inflammation and wall thickening. No evidence of perforation. No fluid collection. Cholelithiasis. No dilated ducts or cholecystitis. Normal liver.
[2018-04-26 06:30] VITALS: BP 133/83
[2018-04-26 07:34] LABS: ABSOLUTE BASOPHIL COUNT 0 /CUMM (0.0-0.2); ABSOLUTE EOSINOPHIL COUNT 0 /CUMM (0.0-0.7); ABSOLUTE GRANULOCYTE CT 12.7 /CUMM (1.4-6.5); ABSOLUTE LYMPH COUNT 1.4 /CUMM (1.2-3.4); ABSOLUTE MONOCYTE COUNT 0.3 /CUMM (0.10-0.60); BASOPHIL % 0.2 % (0.0-2.0); EOSINOPHIL % 0 % (0-5); GRANULOCYTE % 87.7 % (42.2-75.2); MEAN CORPUSCULAR HGB 30.5 PG (27.0-31.0); MEAN CORPUSCULAR HGB CONC 34.3 G/DL (33.0-37.0); MEAN CORPUSCULAR VOLUME 88.8 FL (81.0-99.0); MEAN PLATELET VOLUME 8.2 FL (7.4-10.4); PLATELET COUNT 478 /CUMM (130-400); RBC DISTRIBUTION WIDTH 13.8 % (11.5-14.5); RED BLOOD CELL CT 4.62 /CUMM (4.20-5.40); WHITE BLOOD CELL COUNT 14.5 /CUMM (4.8-10.8)
--- NOTE | 2018-04-26 07:37 | PN- Housestaff ---
See Addendum Subjective Follow-up For: UC flare Subjective: Janae was seen and examined at bedside. She says she feels much better. She reports have a number of bowel movements, some of them bloody with mild abdominal cramping. She has been tolerating her current diet well. She denies fever, chiill, nausea, vomiting, constipation. Review of Systems Constitutional: Reports: see HPI. Objective Last 24 Hrs of Vital Signs/I&O Vital Signs Date Time Temp Pulse Resp B/P B/P Pulse O2 O2 Flow FiO2 Mean Ox Delivery Rate 04/26 1408 97.5 79 20 119/79 97 Room Air 04/26 0630 98.9 72 20 133/83 97 Room Air 04/25 2200 97.9 77 20 143/99 96 Room Air Intake & Output 04/26 1600 04/26 0800 04/26 0000 Intake Total 240 240 Output Total Balance 240 240 Intake, Oral 240 240 Physical Exam General Appearance: Alert, Oriented X3, Cooperative, No Acute Distress Skin: No Rashes Neck: Supple Cardiovascular: Regular Rate, Normal S1, Normal S2 Lungs: Clear to Auscultation Abdomen: Normal Bowel Sounds, Soft, No Tenderness Last 24 Hrs of Lab/Artem Results Last 24 Hrs of Labs/Mics: Laboratory Tests 04/26/18 0700: Anion Gap 7, Estimated GFR > 60, BUN/Creatinine Ratio 22.0, CBC w Diff MAN DIFF ORDERED, RBC 4.62, MCV 88.8, MCH 30.5, MCHC 34.3, RDW 13.8, MPV 8.2, Gran % 87.7 H, Lymphocytes % 9.8 L, Monocytes % 2.3, Eosinophils % 0, Basophils % 0.2, Absolute Granulocytes 12.7 H, Segmented Neutrophils 79 H, Band Neutrophils 8 H, Absolute Lymphocytes 1.4, Lymphocytes 10 L, Monocytes 3, Absolute Monocytes 0.3, Absolute Eosinophils 0, Absolute Basophils 0, Platelet Estimate VERIFIED BY SMEAR, Normocytic RBCs VERIFIED, Normochromic RBCs VERIFIED Assessment/Plan Assessment: 62-year-old female history of asthma, ulcerative colitis presents for reevaluation of abdominal pain and bloody diarrhea and nausea and vomiting after she was discharged home from the ED on a steroid taper. She still has leukocytosis on labs although resolving. She has however been afebrile. She is admitted for an acute flare of ulcerative colitis. Problem List 1.Acute Flare of Ulcerative Colitis 2.Intractable Nausea 3.Hyponatremia likely 2/2 diarrhea, and hypokalemia 4.Bloody stools (resolved for now) 5.Elevated ALT 1.Ulcerative Colitis Flare -The patient has been tapered down to 30mg Prednison q12 h -Gastro consult appreciated. Will follow up on recs * Patient was started on Mesalamine 1600mg * We are continuing with the Rowasa enema. * The patient is being discharged on a low residue diet. * Her K was 3.4 today. 20mEq of K ordered. -Stool cultures for Giardia and Cryptosporidium -ve. C.diff cultures x 2 -ve. -IVF -Phenergen and Tigan as needed to control nausea 3.Bloody Stools (resolved for now) -Hemoglobin stable 4.ALT elevation -CT A/P on 04/17 shows biliary sludge The patient is being discharged home today on Prednisone 30mg Q12h, Mesalamine 1600mg TID and Rowasa enema, once at bedtime. DVT PPx: ALPS only, no heparin 2/2 bloody stool IV access NPO Problem List: 1. Ulcerative colitis 2. Hypokalemia 3. Leukocytosis 4. Malnutrition 5. Nausea 6. Abnormal LFTs 7. Abdominal pain 8. Bloody diarrhea Pain Ratin Pain Location: na Pain Goal: Remain pain free Pain Plan: na Tomorrow's Labs & Rationales: na
[2018-04-26] MEDS ORDERED: PREDNISONE10 M2 PO (13:23)
--- NOTE | 2018-04-26 13:28 | Patient Discharge Instructions ---
Discharge Instructions General Discharge Information You were seen/treated for: Flare up of Ulcerative Colitis Special Instructions: 1. Please see your PCP in a week from your discharge. 2. Please schedule an appointment within a week with to taper your steroid dose and decide on the further treatment course. You current appointment is on 05/24/18. Diet Recommended Diet: Low Residue Acute Coronary Syndrome Inclusion Criteria At DC or during hospital stay patient has or had the following: ACS DIAGNOSIS No Discharge Core Measures Meds if any: Prescribed or Continued at Discharge Meds if any: NOT Prescribed or Continued at Discharge Congestive Heart Failure Inclusion Criteria At DC or during hospital stay patient has or had the following: CHF DIAGNOSIS No Discharge Core Measures Meds if any: Prescribed or Continued at Discharge Meds if any: NOT Prescribed or Continued at Discharge Cerebrovascular accident Inclusion Criteria At DC or during hospital stay patient has or had the following: CVA/TIA Diagnosis No Discharge Core Measures Meds if any: Prescribed or Continued at Discharge Meds if any: NOT Prescribed or Continued at Discharge Venous thromboembolism Inclusion Criteria VTE Diagnosis No VTE Type NONE VTE Confirmed by (Test) NONE Discharge Core Measures - Per Current guidelines, there needs to be overlap - treatment for the first 5 days of Warfarin therapy. - If discharged on Warfarin prior to 5 days of - overlap therapy, the patient will need to be - assessed for post discharge needs including - *Post discharge parental anticoagulation - *Warfarin and/or parental anticoagulation education - *Follow up date to check INR post discharge At least 5 days overlap therapy as Inpatient No Meds if any: Prescribed or Continued at Discharge Note: Overlap Therapy is Warfarin and Anticoagulant Meds if any: NOT Prescribed or Continued at Discharge
[2018-04-26] MEDS ORDERED: ROWASA PR (14:03)
[2018-04-26] MEDS ORDERED: DELZICOL400 M1 PO (14:03)
[2018-04-26 14:08] VITALS: BP 119/79
--- NOTE | 2018-04-27 08:51 | Discharge Summary ---
Hospital Course Allergies: Coded Allergies: NO KNOWN ALLERGIES (01/31/11) Discharge Instructions Medications at Discharge Discharge Medications: Stop taking the following medications: Mesalamine (Apriso) 0.375 GRAM CAP.ER.24H ORAL DAILY Qty = 120 Prednisone (Prednisone) 10 MG TABLET ORAL DAILY Qty = 10 Continue taking these medications: Albuterol Sulfate (Proair Hfa) 90 MCG HFA.AER.AD 2 Puff Inhale through mouth EVERY 4-6 HOURS NEEDED as needed for DYSPNEA Qty = 1 Alprazolam (Alprazolam) 1 MG TABLET 1 Tablet ORAL THREE TIMES DAILY as needed for ANXIETY Qty = 60 Comments: Last Taken:04/25/18 Time:9pm Fluticasone-Salmeterol (Advair 100-50 Diskus) 100 MCG-50 MCG/DOSE BLST.W.DEV 1 Puff Inhale through mouth TWICE DAILY Days = 30 Comments: symbicort given 04/25/18 at 8pm Multiple Vitamin (Multivitamins) 1 EACH TABLET 1 Tablet ORAL DAILY Comments: not given Start taking the following new medications: Prednisone (Prednisone) 10 MG TABLET 30 Milligram ORAL TWICE DAILY Days = 30 No Refills Mesalamine (Delzicol) 400 MG CAPSULE.DR 1,600 Milligram ORAL THREE TIMES DAILY Days = 14 No Refills Mesalamine (Rowasa) 4 GRAM/60 ML ENEMA 4 Enema RECTALLY AT BEDTIME Days = 14 No Refills
== END 2018-04-26 15:20 | DRG 386 ==
LOC: ERH 20:19 → 2NB 23:04 → ERHI 23:04 → 2NB 23:04 → ENRESERV 04-24 00:32 → 2NB 04-24 01:15
PROVIDERS: Hospitalist; Physician Assistant Medical
DX: K51.911 Ulcerative colitis, unspecified with rectal bleeding (principal); E87.1 Hypo-osmolality and hyponatremia; E46 Unspecified protein-calorie malnutrition; J45.909 Unspecified asthma, uncomplicated; F41.9 Anxiety disorder, unspecified; E86.0 Dehydration; R74.0 Nonspecific elevation of levels of transaminase and lactic acid dehydrogenase [LDH]; K80.20 Calculus of gallbladder without cholecystitis without obstruction; F10.11 Alcohol abuse, in remission; Z87.19 Personal history of other diseases of the digestive system; Z91.14 Patient's other noncompliance with medication regimen; E87.6 Hypokalemia; Z68.25 Body mass index [BMI] 25.0-25.9, adult
CPT/HCPCS: 2NBSP; 86021; ERO; 36592; 74177; 81001; 82436; 87015; 87045; 87328; 87329; 87899; 87899-59; 96361; 96374; 96375; J2405; J2550; J2920; J3490; J7512